=== PATIENT | male | born 1960 | race Caucasian/White ===

== ENCOUNTER 2018-11-19 14:44 | Inpatient (IN) | payer SELFPAY ==
[2018-11-19] MEDS ORDERED: NORMAL SALINE 1000 ML 1,000 ML IV ONE (15:26)
--- NOTE | 2018-11-19 15:31 | ER Document Report ---
ED Medical Screen (RME) - General Chief Complaint: Leg Pain Stated Complaint: RIGHT TOE PAIN Time Seen by Provider: 11/19/18 15:24 Mode of Arrival: Wheelchair Information source: Patient Notes: 58-year-old male presented to ED for complaint of a discolored black dripping right great toe. He states is been discolored and scab for a while but it flared up worse last couple days. He states he has [place] airports [place] on and it started bleeding and passing. He states he is been trying to baby it for couple days till he got home but it kept getting worse. He states the toe is now extremely painful and black to the color. He states he still has sensation in his foot. He states he has a history of blood blood pressure cholesterol and he had diabetes but has been on a diet and is kept his sugar under control. He states he smokes a pack a day drinks 3-4 beer every other day and smokes pot. 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 Patient is alert oriented respirations regular and unlabored speaking in full sentences. The foot is wrapped up in gauze but it is dripping through the gauze. I have greeted and performed a rapid initial assessment of this patient. A comprehensive ED assessment and evaluation of the patient, analysis of test results and completion of medical decision making process will be conducted by an additional ED providers. - Related Data Allergies/Adverse Reactions: Penicillins Allergy (Verified 11/19/18 14:47) Physical Exam - Vital signs Vitals: Temp Pulse Resp BP Pulse Ox 98.3 F 85 14 154/73 H 98 11/19/18 14:57 11/19/18 14:57 11/19/18 14:57 11/19/18 14:57 11/19/18 14:57 Course - Vital Signs Vital signs: Temp Pulse Resp BP Pulse Ox 98.3 F 85 14 154/73 H 98 11/19/18 14:57 11/19/18 14:57 11/19/18 14:57 11/19/18 14:57 11/19/18 14:57
--- NOTE | 2018-11-19 16:05 | RADIOLOGY REPORT (SQ) ---
EXAM DESCRIPTION: FOOT RIGHT COMPLETE COMPLETED DATE/TIME: 11/19/2018 3:53 pm REASON FOR STUDY: nacrotic right great toe COMPARISON: None. NUMBER OF VIEWS: Three views. TECHNIQUE: AP, lateral and oblique radiographic images acquired of the right foot. LIMITATIONS: None. FINDINGS: MINERALIZATION: Decreased forefoot mineralization. BONES: Cortical irregularity and fragmentation at the distal 1st phalanx compatible with osteomyeliti s. No evidence of fracture dislocation. Additional degenerative changes with mild joint space loss and osteophytosis at scattered interphalangeal joints. Small plantar calcaneal enthesophyte. JOINTS: No dislocation. Mild midfoot degenerative change. SOFT TISSUES: Subcutaneous gas along the 1st digit. Laceration along the lateral forefoot. OTHER: No other significant finding. IMPRESSION: 1. Subcutaneous gas along the 1st digit with bony destruction of the 1st distal phalanx compatible with osteomyelitis. 2. Likely laceration along the lateral forefoot. TECHNICAL DOCUMENTATION: JOB ID: [id number] [employer]- All Rights Reserved Reading location - IP/workstation name: [email or web address]
[2018-11-19 16:35] LABS: ABSOLUTE BASOPHILS # (AUTO) 0.1 10^3/uL (0.0-0.2); ABSOLUTE EOSINOPHILS # (AUTO) 0.1 10^3/uL (0.0-0.6); ABSOLUTE LYMPHOCYTES (AUTO) 1.6 10^3/uL (0.5-4.7); ABSOLUTE NEUT (AUTO) 8.6 10^3/uL (1.7-8.2); BASOPHILS % (AUTO) 0.6 % (0-2); EOSINOPHILS % (AUTO) 0.6 % (0-6); HEMATOCRIT 47.3 % (37.9-51.0); HEMOGLOBIN 15.8 g/dL (13.5-17.0); LYMPHOCYTES % (AUTO) 13.9 % (13-45); MEAN CORPUSCULAR HEMOGLOBIN 29.7 pg (27.0-33.4); MEAN CORPUSCULAR HGB CONC 33.4 g/dL (32.0-36.0); MEAN CORPUSCULAR VOLUME 89 fl (80-97); MONOCYTES % (AUTO) 8.8 % (3-13); PLATELET COUNT 249 10^3/uL (150-450); RED BLOOD COUNT 5.32 10^6/uL (4.35-5.55); RED CELL DISTRIBUTION WIDTH 13.2 % (11.5-14.0); SEGMENTED NEUTROPHILS % (AUTO) 76.1 % (42-78); TOTAL CELLS COUNTED % (AUTO) 100 %; WHITE BLOOD COUNT 11.3 10^3/uL (4.0-10.5)
[2018-11-19] MEDS ORDERED: VANCOMYCIN HCL INJ 1000 MG VIAL IV ONE (16:49)
[2018-11-19 17:02] LABS: ALBUMIN 4.4 g/dL (3.5-5.0); ALKALINE PHOSPHATASE 146 U/L (38-126); ANION GAP 18 (5-19); ASPARTATE AMINO TRANSFERASE 19 U/L (17-59); BILIRUBIN,DIRECT 0.5 mg/dL (0.0-0.4); BLOOD UREA NITROGEN 14 mg/dL (7-20); CALCIUM 9.8 mg/dL (8.4-10.2); CARBON DIOXIDE 19 mmol/L (22-30); CHLORIDE 101 mmol/L (98-107); GLUCOSE 317 mg/dL (75-110); POTASSIUM 4.3 mmol/L (3.6-5.0)
--- NOTE | 2018-11-19 17:12 | ER Document Report ---
ED General - General Chief Complaint: Leg Pain Stated Complaint: RIGHT TOE PAIN Time Seen by Provider: 11/19/18 15:24 Mode of Arrival: Wheelchair - HPI Notes: 58-year-old male to the emergency department with complaints of right great toe infection that has been getting worse for the past week. He states that he was visiting a friend in [place] over the past week and they were walking around quite a bit. He states that when he took his foot out of his shoe it was acutely swollen and bleeding. He states that since then the toe is gotten more swollen and has been draining discharge. He also states that there is redness that is coming up the foot that has been getting progressively worse. He states that he has pain on the top of the foot but not into the toe. He states that he is a diet-controlled diabetic. He states that he has not had any fevers, chills, chest pain, shortness of breath, abdominal pain. He last ate on an airplane at 12:30 PM today. He has been drinking water up until arrival here into the emergency department. - Related Data Allergies/Adverse Reactions: Penicillins Allergy (Verified 11/19/18 14:47) Past Medical History - General Information source: Patient - Social History Smoking Status: Current Every Day Smoker Frequency of alcohol use: Occasional Drug Abuse: None Lives with: Family Family History: Reviewed & Not Pertinent Patient has suicidal ideation: No Patient has homicidal ideation: No - Past Medical History Cardiac Medical History: Reports: Hx Hypercholesterolemia, Hx Hypertension Endocrine Medical History: Reports: Hx Diabetes Mellitus Type 2 Past Surgical History: Reports: Hx Tonsillectomy Review of Systems - Review of Systems Constitutional: denies: Chills, Fever EENT: No symptoms reported Cardiovascular: denies: Chest pain, Palpitations, Dyspnea, Syncope, Dizziness, Lightheaded Respiratory: denies: Cough, Short of breath Gastrointestinal: denies: Abdominal pain, Diarrhea, Nausea, Vomiting Genitourinary: No symptoms reported Musculoskeletal: See HPI, Joint pain, Joint swelling Skin: See HPI, Change in color, Other Hematologic/Lymphatic: No symptoms reported Neurological/Psychological: No symptoms reported -: Yes All other systems reviewed and negative Physical Exam - Vital signs Vitals: Temp Pulse Resp BP Pulse Ox 98.3 F 85 14 154/73 H 98 11/19/18 14:57 11/19/18 14:57 11/19/18 14:57 11/19/18 14:57 11/19/18 14:57 Interpretation: Hypertensive - General General appearance: Appears well, Alert In distress: None - HEENT Head: Normocephalic, Atraumatic Eyes: Normal Pupils: PERRL - Respiratory Respiratory status: No respiratory distress Chest status: Nontender Breath sounds: Normal Chest palpation: Normal - Cardiovascular Rhythm: Regular Heart sounds: Normal auscultation Murmur: No - Abdominal Inspection: Normal Distension: No distension Bowel sounds: Normal Tenderness: Nontender Organomegaly: No organomegaly - Extremities General upper extremity: Normal inspection, Normal color, Normal strength. No: Edema Foot: Tender, Edema, Other - To the right great toe, the nailbed is completely macerated and edematous. It has ivan copious malodorous purulent drainage. There is erythema that extends from the right great toe up to the mid foot dorsally. This area is hot and mildly tender to palpation. There appears to be involvement of this infection to the second digit of the right foot as well. DP pulse is intact and equal. - Neurological Neuro grossly intact: Yes Cognition: Normal Orientation: AAOx4 Rodger Coma Scale Eye Opening: Spontaneous [place] Coma Scale Verbal: Oriented [place] Coma Scale Motor: Obeys Commands [place] Coma Scale Total: 15 Speech: Normal Motor strength normal: LUE, RUE, LLE, RLE Sensory: Normal - Psychological Associated symptoms: Normal affect, Normal mood - Skin Skin Temperature: Hot Skin Color: Erythema - see MS for further discussion of the infection to the right great toe. Course - Re-evaluation Re-evalutation: 11/19/18 17:20 page out to Surgicalist. Will await return call. Noted Xr with gas gangrene and osteomyelitis on XR of distal phalanx of the righ t great toe. Foot X-Ray 11/19/18 15:25 IMPRESSION: 1. Subcutaneous gas along the 1st digit with bony destruction of the 1st distal phalanx compatible with osteomyelitis. 2. Likely laceration along the lateral forefoot. 11/19/18 17:[address] Velazquez, surgical is national business director. Since patient technically qualifies for diabetic foot and felt section he would like for him to go to the hospital service. He states that the hospitalist service should consult him. Spoke with ERLINDA Todd, hospitalist ERLINDA. He agrees with the plan for admission. He is aware of vancomycin given for the patient. He is aware of the x-ray with gas gangrene and osteomyelitis illustrated. He is aware of white count. He is aware that patient's vital signs are stable. We will place patient into a medical bed for admission. He is aware the patient's been made n.p.o. Discussed with patient consultations and he agrees with the plan for admission. ERLINDA Don Day down to patient's bedside just as our conversation was concluding. 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 Will be admitted to the hospitalist service with surgery consulting. Antibiotics have been started. Discussed patient with Dr. Christianson, ER attending. She agrees with the plan for admission. - Vital Signs Vital signs: Temp Pulse Resp BP Pulse Ox 98.3 F 85 14 154/73 H 98 11/19/18 14:57 11/19/18 14:57 11/19/18 14:57 11/19/18 14:57 11/19/18 14:57 - Laboratory Result Diagrams: 11/19/18 16:10 11/19/18 16:10 Laboratory results interpreted by me: 11/19/18 11/19/18 16:10 16:10 WBC 11.3 H Absolute Neuts (auto) 8.6 H ESR 80 H Carbon Dioxide 19 L Creatinine 0.44 L Glucose 317 H Direct Bilirubin 0.5 H Alkaline Phosphatase 146 H C-Reactive Protein 217.9 H - Diagnostic Test Radiology reviewed: Image reviewed, Reports reviewed Discharge - Discharge Clinical Impression: Gas gangrene, Osteomyelitis of great toe, Cellulitis of foot, Hyperglycemia Condition: Stable Disposition: ADMITTED INPATIENT Admitting Provider: Jassi (Hospitalist) Unit Admitted: Medical Floor
[2018-11-19 17:14] LABS: C-REACTIVE PROTEIN 217.9 mg/L (<10.0); ERYTHROCYTE SEDIMENTATION RATE 80 mm/hr (0-20)
[2018-11-19] MEDS ORDERED: DEXTROSE 40% GEL 15 GM TUBE PO PRN ×4 (17:57→18:10)
[2018-11-19] MEDS ORDERED: ZOLPIDEM TARTRATE 5 MG TABLET PO PRN (17:57)
[2018-11-19] MEDS ORDERED: OXYCODONE-ACETAMINOPHEN 5-325 MG TABLET PO PRN (17:57)
[2018-11-19] MEDS ORDERED: ONDANSETRON HCL INJ/PF 4 MG/2 ML SDV IV PRN (17:57)
[2018-11-19] MEDS ORDERED: ONDANSETRON 4 MG TAB.RAPDIS PO PRN (17:57)
[2018-11-19] MEDS ORDERED: ACETAMINOPHEN 325 MG TABLET PO PRN (17:57)
[2018-11-19] MEDS ORDERED: DEXTROSE 50%-WATER 25 GM/50 ML DISP.SYRIN IV PRN ×4 (17:57→18:10)
[2018-11-19] MEDS ORDERED: GLUCAGON,HUMAN RECOMB 1 MG INJ SUBCUT PRN (17:57)
[2018-11-19] MEDS ORDERED: GLUCAGON,HUMAN RECOMB 1 MG INJ IM PRN (18:10)
--- NOTE | 2018-11-19 18:12 | Progress Note Acknowledgement ---
Progress Note Acknowledgement Progess Note Acknowledgement: I, the undersigned member of the medical staff with appropriate privileges and with supervisory authority over [ PAC], a dependent practice allied health professional, acknowledge that I have reviewed the progress notes entered on this patient, and in my professional judgment believe that the assessment made and/or any care evidenced was appropriate
[2018-11-19] MEDS ORDERED: HYDRALAZINE HCL INJ/PF 20 MG/1 ML SDV IV PRN (18:22)
--- NOTE | 2018-11-19 18:22 | PDOC H&P ---
History of Present Illness Admission Date/PCP: 11/19/18 17:40 Patient is admitted today 11/19/2018 for osteomyelitis of the right great toe History of Present Illness: JOHANA RUIZ JR is a 58 year old male who states that according to his history 6 days ago while visiting [facility] he noticed that his right great toe was "black and bleeding. According to the patient that the first time he noticed it was 6 days ago. Patient also states that it had a strong smell foul odor. Patient states that he is always had a "callus" on his great toe that he would either shave off her trim off but never had any sores, ulcers, lesions of his feet that would bleed or were open. Patient's right great toe is black, bleeding, the skin is necrotic. Patient has redness to the foot mcc up his right leg. No odor at this time. Patient states that the wound is not very painful he does feel it when he walks If history is that 20 years ago he was told he was diabetic he was put on m edications but he stopped the medicines 9 or 10 years ago because of finances. He is also been told in the past that he had high cholesterol but he stopped those medicines as well. He is allergic to penicillin he breaks out in a rash. 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 Patient's son and his are in the room during the exam and the history Past Medical History Cardiac Medical History: Reports: Hyperlipidema, Hypertension Endocrine Medical History: Reports: Diabetes Mellitus Type 2 Psychiatric Medical History: Reports: None, Other - Patient states he only drinks a beer or 2 every few days Past Surgical History Past Surgical History: Reports: Tonsillectomy Social History Lives with: Family Smoking Status: Current Every Day Smoker - Advance Directive Resuscitation Status: Full Code Family History Family History: Reviewed & Not Pertinent Parental Family History Reviewed: No Children Family History Reviewed: No Sibling(s) Family History Reviewed.: No Medication/Allergy Allergies/Adverse Reactions: Penicillins Allergy (Verified 11/19/18 14:47) Review of Systems Constitutional: ABSENT: chills, fever(s), headache(s), weight gain, weight loss Cardiovascular: ABSENT: chest pain, dyspnea on exertion, edema, orthropnea, palpitations Respiratory: ABSENT: cough, hemoptysis Gastrointestinal: ABSENT: abdominal pain, constipation, diarrhea, hematemesis, hematochezia, nausea, vomiting Integumentary: PRESENT: erythema, lesions, wounds, other - Right great toe with redness extending up to the mid tibia-fibula Neurological: ABSENT: abnormal gait, abnormal speech, confusion, dizziness, focal weakness, syncope Psychiatric: ABSENT: anxiety, depression, homidical ideation, suicidal ideation Physical Exam Vital Signs: Temp Pulse Resp BP Pulse Ox 98.3 F 85 14 154/73 H 98 11/19/18 14:57 11/19/18 14:57 11/19/18 14:57 11/19/18 14:57 11/19/18 14:57 Intake & Output 11/18/18 11/19/18 11/20/18 06:59 06:59 06:59 Weight 81 kg General appearance: PRESENT: no acute distress, other - Appears to be in no distress Head exam: PRESENT: atraumatic, normocephalic Respiratory exam: PRESENT: clear to auscultation cherie. ABSENT: rales, rhonchi, wheezes Cardiovascular exam: PRESENT: RRR. ABSENT: diastolic murmur, rubs, systolic murmur Neurological exam: PRESENT: alert, awake, oriented to person, oriented to place, oriented to time, oriented to situation, CN II-XII grossly intact. ABSENT: motor sensory deficit Psychiatric exam: PRESENT: appropriate affect, normal mood, other - Very pleasant, somewhat slow to questions. ABSENT: homicidal ideation, suicidal ideation Skin exam: PRESENT: erythema, warm, other - Necrotic tissue to the right great toe extending into the right foot, with redness and warmth to the dorsum of the right foot up to the right felipe Results Laboratory Results: 11/19/18 16:10 11/19/18 16:10 11/19/18 11/19/18 11/19/18 16:10 16:10 16:56 WBC 11.3 H RBC 5.32 Hgb 15.8 Hct 47.3 MCV 89 MCH 29.7 MCHC 33.4 RDW 13.2 Plt Count 249 Seg Neutrophils % 76.1 Sodium 137.6 Potassium 4.3 Chloride 101 Carbon Dioxide 19 L Anion Gap 18 BUN 14 Creatinine 0.44 L Est GFR ( Amer) > 60 Glucose 317 H Lactic Acid 1.4 Calcium 9.8 Total Bilirubin 1.0 AST 19 Alkaline Phosphatase 146 H C-Reactive Protein 217.9 H Total Protein 8.0 Albumin 4.4 Impressions: Foot X-Ray 11/19/18 15:25 IMPRESSION: 1. Subcutaneous gas along the 1st digit with bony destruction of the 1st distal phalanx compatible with osteomyelitis. 2. Likely laceration along the lateral forefoot. Assessment and Plan - Diagnosis (1) Hyperlipidemia Is this a current diagnosis for this admission?: Yes Plan: We will check a fasting lipid panel in the morning. History of medications in the past (2) Hypertension Is this a current diagnosis for this admission?: Yes Plan: Blood pressures elevated in the ER, patient states that he may have had hypertension in the past (3) Cellulitis of foot Is this a current diagnosis for this admission?: Yes Plan: Will be started on vancomycin IV in the ED and will be seen by general surgery further recommendations as well (4) Gas gangrene Is this a current diagnosis for this admission?: Yes Plan: Gas gangrene as evidenced by x-ray of the foot of the distal phalanx (6) Osteomyelitis of great toe Is this a current diagnosis for this admission?: Yes Plan: Osteomyelitis as diagnosed by x-ray, patient to be put on antibiotics and seen by general surgery - Time Time Spent with patient: 35 or more minutes
[2018-11-19 18:29] LABS: INTERNATIONAL RATION (INR) 1.11; PROTHROMBIN TIME 14.3 SEC (11.4-15.4)
--- NOTE | 2018-11-19 18:47 | RADIOLOGY REPORT (SQ) ---
EXAM DESCRIPTION: CHEST 2 VIEWS COMPLETED DATE/TIME: 11/19/2018 6:29 pm REASON FOR STUDY: Preop COMPARISON: None. EXAM PARAMETERS: NUMBER OF VIEWS: two views TECHNIQUE: Digital Frontal and Lateral radiographic views of the chest acquired. RADIATION DOSE: NA LIMITATIONS: none FINDINGS: LUNGS AND PLEURA: No opacities, masses or pneumothorax. No pleural effusion. MEDIASTINUM AND HILAR STRUCTURES: No masses or contour abnormalities. HEART AND VASCULAR STRUCTURES: Heart normal size. No evidence for failure. BONES: No acute findings. Exaggerated thoracic kyphosis. HARDWARE: None in the chest. OTHER: No other significant finding. IMPRESSION: No evidence of acute cardiopulmonary process. TECHNICAL DOCUMENTATION: JOB ID: [id number] [employer]- All Rights Reserved Reading location - IP/workstation name: [email or web address]
--- NOTE | 2018-11-19 20:54 | PDOC CONSULTATION ---
Consultation Consult Date: 11/19/18 Provider Consulted: SURGICAL SURGICALIST Consult reason:: wet gangrene right foot History of Present Illness Admission Date/PCP: 11/19/18 17:40 History of Present Illness: JOHANA RUIZ JR is a 58 year old male with uncontrolled diabetes. The patient reports that approximately 1 week ago he was out of town visiting friends. He was walking around town and noticed bleeding from his toe. The patient reports that he did not seek care at that time and treated it with creams and dressings. The toe began to worsen, and the patient returned home. Upon returning home he showed the foot to his family, who immediately brought him to the hospital. The patient reports that he has diabetes, but does not check his sugars or take any medications. The patient does have some amount of neuropathy. The patient began to notice a foul odor and black discoloration of his right great toe. He also has erythema that has extended proximally up the foot and onto the lower leg. The patient reports foul-smelling drainage that is worsening. He denies chest pain, shortness of breath, nausea, vomiting, headache, dizziness, orthostasis, abdominal pain, fatigue. Past Medical History Cardiac Medical History: Reports: Hyperlipidema, Hypertension Endocrine Medical History: Reports: Diabetes Mellitus Type 2 Psychiatric Medical History: Reports: None, Other - Patient states he only drinks a beer or 2 every few days Past Surgical History Past Surgical History: Reports: Tonsillectomy Social History Lives with: Family Smoking Status: Current Every Day Smoker Frequency of Alcohol Use: Heavy Hx Recreational Drug Use: No - Advance Directive Resuscitation Status: Full Code Family History Family History: Reviewed & Not Pertinent Parental Family History Reviewed: Yes Children Family History Reviewed: Yes Sibling(s) Family History Reviewed.: Yes Medication/Allergy Home Medications: No Home Medications 11/19/18 Allergies/Adverse Reactions: Penicillins Allergy (Verified 11/19/18 14:47) Review of Systems Constitutional: ABSENT: anorexia, chills, fatigue Eyes: ABSENT: visual disturbances Ears: ABSENT: hearing changes Nose, Mouth, and Throat: ABSENT: sore throat Cardiovascular: ABSENT: chest pain Respiratory: ABSENT: cough, dyspnea Gastrointestinal: ABSENT: abdominal pain Genitourinary: ABSENT: difficulty urinating Musculoskeletal: ABSENT: back pain Integumentary: PRESENT: lesions, rash, wounds, other - Foul-smelling and purulent drainage from the right foot. Ascending erythema on the right foot and leg. Neurological: ABSENT: confusion, convulsions, dizziness Psychiatric: ABSENT: anxiety Endocrine: ABSENT: cold intolerance, heat intolerance Hematologic/Lymphatic: ABSENT: easy bleeding, easy bruising Physical Exam Vital Signs: Temp Pulse Resp BP Pulse Ox 98.3 F 85 14 154/73 H 98 11/19/18 14:57 11/19/18 14:57 11/19/18 14:57 11/19/18 14:57 11/19/18 14:57 Intake & Output 11/18/18 11/19/18 11/20/18 06:59 06:59 06:59 Intake Total 1000 Balance 1000 Weight 81 kg General appearance: PRESENT: no acute distress Head exam: PRESENT: atraumatic, normocephalic Eye exam: PRESENT: EOMI, PERRLA. ABSENT: scleral icterus Mouth exam: PRESENT: moist, neck supple Neck exam: ABSENT: meningismus, tenderness, thyromegaly, tracheal deviation Cardiovascular exam: PRESENT: RRR Pulses: PRESENT: normal radial pulses Vascular exam: PRESENT: other - Palpable posterior tibial pulse bilaterally. GI/Abdominal exam: PRESENT: soft. ABSENT: firm, guarding, rigid, tenderness Rectal exam: PRESENT: deferred Extremities exam: PRESENT: +2 edema - Right foot, other - Right foot with wet gangrene and necrosis of the first and second toes. There is foul-smelling drainage. There is severe erythema and boggy edema extending over the entire foot, up to the calf. Neurological exam: PRESENT: alert, awake, oriented to person, oriented to place, oriented to time, oriented to situation, CN II-XII grossly intact. ABSENT: motor sensory deficit Psychiatric exam: PRESENT: anxious. ABSENT: agitated, depressed Focused psych exam: ABSENT: delusional Skin exam: PRESENT: erythema - Right foot, extending up to the lower leg.. ABSENT: cyanosis, jaundice Results Laboratory Results: 11/19/18 16:10 11/19/18 16:10 11/19/18 11/19/18 11/19/18 16:10 16:10 16:56 WBC 11.3 H RBC 5.32 Hgb 15.8 Hct 47.3 MCV 89 MCH 29.7 MCHC 33.4 RDW 13.2 Plt Count 249 Seg Neutrophils % 76.1 Sodium 137.6 Potassium 4.3 Chloride 101 Carbon Dioxide 19 L Anion Gap 18 BUN 14 Creatinine 0.44 L Est GFR ( Amer) > 60 Glucose 317 H Lactic Acid 1.4 Calcium 9.8 Total Bilirubin 1.0 AST 19 Alkaline Phosphatase 146 H C-Reactive Protein 217.9 H Total Protein 8.0 Albumin 4.4 Impressions: Foot X-Ray 11/19/18 15:25 IMPRESSION: 1. Subcutaneous gas along the 1st digit with bony destruction of the 1st distal phalanx compatible with osteomyelitis. 2. Likely laceration along the lateral forefoot. Chest X-Ray 11/19/18 18:05 IMPRESSION: No evidence of acute cardiopulmonary process. Assessment & Plan - Diagnosis (1) Gangrene of right foot Is this a current diagnosis for this admission?: Yes (2) Gas gangrene Is this a current diagnosis for this admission?: Yes - Plan Summary Plan Summary: This is a 58-year-old male with uncontrolled diabetes and a 1 week history of progressive necrosis of the right foot. Patient has wet gangrene involving the first and second toe, extending into the midfoot, up to the ankle. I have discussed options with the patient. The patient has a large amount of necrotic tissue in the distal foot. While a transmetatarsal amputation may technically be feasible, it will be fraught with infectious complications, and difficulty with coverage of the wound (due to the large amount of necrosis of the forefoot). In light of these issues I have discussed, and recommended that the patient strongly consider, below-knee amputation on the right side. This will definitively remove the source of infection (which is severe and significant). It will also allow him to begin the long road to recovery and prosthesis. The patient wishes to discuss these options with his family. I will plan for surgical intervention tomorrow. The patient will decide between damage control/transmetatarsal amputation versus definitive below-knee amputation. Risks/benefits discussed and all questions answered.
[2018-11-19 21:38] LABS: APPEARANCE,URINE CLEAR; BILIRUBIN,URINE NEGATIVE (NEGATIVE); COLOR,URINE YELLOW; GLUCOSE, URINE >=500 mg/dL (NEGATIVE); KETONES,URINE 80 mg/dL (NEGATIVE); LEUKOCYTE ESTERASE,URINE NEGATIVE (NEGATIVE); NITRITE,URINE NEGATIVE (NEGATIVE); PROTEIN,URINE 30 mg/dL (NEGATIVE); URINE SPECIFIC GRAVITY 1.035; UROBILINOGEN,URINE NEGATIVE mg/dL (<2.0)
[2018-11-19] MEDS: FAMOTIDINE 20 MG TABLET PO SCH (21:56)
[2018-11-19] MEDS: HEPARIN SOD (PORCINE) 5,000 UNIT/ML 1 ML VIAL SUBCUT SCH (21:57)
[2018-11-19] MEDS: INSULIN LISPRO 100 UNIT/ML 3 ML VIAL SUBCUT SCH (23:53)
[2018-11-20] MEDS: HEPARIN SOD (PORCINE) 5,000 UNIT/ML 1 ML VIAL SUBCUT SCH (05:29)
[2018-11-20] MEDS: INSULIN LISPRO 100 UNIT/ML 3 ML VIAL SUBCUT SCH ×4 (06:21→21:39)
[2018-11-20 06:29] LABS: ABSOLUTE BASOPHILS # (AUTO) 0.1 10^3/uL (0.0-0.2); ABSOLUTE EOSINOPHILS # (AUTO) 0.2 10^3/uL (0.0-0.6); ABSOLUTE LYMPHOCYTES (AUTO) 1.5 10^3/uL (0.5-4.7); ABSOLUTE MONOCYTES (AUTO) 0.9 10^3/uL (0.1-1.4); ABSOLUTE NEUT (AUTO) 5.7 10^3/uL (1.7-8.2); BASOPHILS % (AUTO) 1.3 % (0-2); EOSINOPHILS % (AUTO) 1.9 % (0-6); HEMATOCRIT 39.9 % (37.9-51.0); HEMOGLOBIN 13.5 g/dL (13.5-17.0); LYMPHOCYTES % (AUTO) 18.2 % (13-45); MEAN CORPUSCULAR HGB CONC 33.9 g/dL (32.0-36.0); MEAN CORPUSCULAR VOLUME 89 fl (80-97); MONOCYTES % (AUTO) 10.5 % (3-13); PLATELET COUNT 230 10^3/uL (150-450); RED CELL DISTRIBUTION WIDTH 12.8 % (11.5-14.0); SEGMENTED NEUTROPHILS % (AUTO) 68.1 % (42-78); TOTAL CELLS COUNTED % (AUTO) 100 %; WHITE BLOOD COUNT 8.3 10^3/uL (4.0-10.5)
[2018-11-20 06:40] LABS: ANION GAP 14 (5-19); BLOOD UREA NITROGEN 11 mg/dL (7-20); CALCIUM 8.5 mg/dL (8.4-10.2); CARBON DIOXIDE 20 mmol/L (22-30); CHLORIDE 105 mmol/L (98-107); CHOLESTEROL 150.54 mg/dL (0-200); GLUCOSE 272 mg/dL (75-110); POTASSIUM 4.1 mmol/L (3.6-5.0); TRIGLYCERIDES 125 mg/dL (<150)
[2018-11-20 06:51] LABS: DIRECT LDL 118 mg/dL (<100)
[2018-11-20] MEDS ORDERED: FENTANYL CITRATE INJ/PF 100 MCG/2 ML AMPUL ONE (08:37)
[2018-11-20] MEDS ORDERED: MIDAZOLAM 2 MG/2 ML INJ ONE ×2 (08:38→08:45)
[2018-11-20] MEDS ORDERED: PROPOFOL INJ 200 MG/20 ML VIAL IV ONE ×2 (08:38→08:46)
[2018-11-20] MEDS ORDERED: ONDANSETRON HCL INJ/PF 4 MG/2 ML SDV ONE (08:38)
[2018-11-20] MEDS ORDERED: MORPHINE SULFATE 10 MG/ML INJ ONE (08:38)
[2018-11-20] MEDS ORDERED: CEFAZOLIN INJ 1 GM VIAL ONE (08:52)
[2018-11-20] MEDS ORDERED: PROMETHAZINE HCL INJ 25 MG/1 ML VIAL IV PRN ×2 (09:22)
[2018-11-20] MEDS ORDERED: FENTANYL CITRATE INJ/PF 100 MCG/2 ML AMPUL IV PRN ×3 (09:22)
[2018-11-20] MEDS ORDERED: MEPERIDINE HCL/PF INJ 25 MG/1 ML DISP.SYRIN IV PRN (09:22)
[2018-11-20] MEDS ORDERED: MORPHINE SULFATE 10 MG/ML INJ IV PRN (09:22)
[2018-11-20] MEDS ORDERED: DIPHENHYDRAMINE HCL 50 MG/ML VIAL IV PRN (09:22)
[2018-11-20] MEDS ORDERED: CLINDAMYCIN 600 MG/D5W RTU 600 MG/50 ML RTUPB IV ONE (09:25)
--- NOTE | 2018-11-20 10:55 | Operative Report ---
Operative Report DATE OF SURGERY: 11/20/18 PREOPERATIVE DIAGNOSIS: Gangrene multiple toes right foot POSTOPERATIVE DIAGNOSIS: Same OPERATION: Right below-knee amputation SURGEON: NAGA MITCHELL ANESTHESIA: Epidural TISSUE REMOVED OR ALTERED: Right BKA specimen COMPLICATIONS: None ESTIMATED BLOOD LOSS: Less than 20 mL INTRAOPERATIVE FINDINGS: As preop diagnosis; tourniquet time 67 minutes PROCEDURE: The procedure was done in the operating room, the patient was placed in a supine position, spinal anesthesia was induced plus intravenous sedation. Proximally to the area of interest, Clancy cotton roll was circumferentially applied to the thigh followed by a disposable tourniquet, protected by a 1010 drape. The extremity of interest was prepped and draped in the usual fashion. The extremity was exanguinated with an Esmarch band. The tourniquet was inflated to about 150 mmHg above the systolic blood pressure. The proposed area of skin incision was outlined with a surgical marker so to have a long, floppy posterior myocutaneous flap able to close the surgical wound. An incision was made along the outlined lines of amputation; the incision was deepened through the subcutaneous tissue down to the bone: this was continued circumferentially following the outlined lines. The tibial and fibular bones were exposed proximally with a periosteal elevator and divided as proximally as possible with an oscillating electrical saw. The tibia was divided about 2 fingerbreadths below the tibial tuberosity. The fibula was divided at a similar length. The posterior leg neurovascular complex was identified, the tibial nerve was isolated, clamped, and divided. The proximal nerve stump was double ligated and folded on itself to prevent regrowth and neuroma formation. This was accomplished with a 2-0 silk suture. Likewise, the vessels were identified: both veins and arteries were individually suture ligated in between clamps using a 2-0 silk sutures on a needle. Particular attention was paid to the popliteal artery which was carefully ligated. The distal end of the myocutaneous flap was divided with Bovie. The specimen was removed from the surgical field and sent to pathology. Local smaller vessels were identified and cauterized or suture ligated. The bone stump edges were filed and the stumps were covered with bone wax. The surgical field was then irrigated with normal saline until clear. A 15 Georgian round Donnie drain drain was placed deep in the surgical field and was allowed to exit through a separate stab wound located laterally in the BKA stump. The drain was secured to the skin with a 2-0 nylon suture. Closure of the BKA was accomplished by anteriorly rotating the posterior myocutaneous flap. This was kept in positions with a few deep inverted figure-of-8 0-Vicryl sutures. The muscle fascia was approximated with interrupted [id number] 0-Vicryl sutures. The subcutaneous tissue were approximated with deep inverted 2-0 Vicryl sutures and the skin was closed with esme. Xeroform gauze was placed on the surgical wound followed by dry dressings and Kerlix roll. A prefabricated, fiberglass, padded splint was applied posteriorly to the distal thigh and to the BKA stump and folded anteriorly; this was kept in position by an Js bandage. The splint was allowed to cure while the BKA stump was maintained extended. The tourniquet was deflated; the tourniquet time was 67 minutes. The patient tolerated procedure well, was extubated, and was transferred to the recovery room in satisfactory conditions.
[2018-11-20] MEDS: FAMOTIDINE 20 MG TABLET PO SCH ×2 (11:44→21:38)
[2018-11-20] MEDS: DOCUSATE SODIUM 100 MG CAPSULE PO SCH (11:44)
[2018-11-20] MEDS: KETOROLAC TROMETHAMINE INJ/PF 30 MG/1 ML SDV IV PRN ×2 (11:45→18:46)
[2018-11-20] MEDS: ACETAMINOPHEN 1,000 MG/100 ML RTUPB IV SCH ×3 (11:47→23:02)
[2018-11-20] MEDS ORDERED: HYDROMORPHONE HCL INJ/PF 2 MG/ML AMPULE ONE (12:47)
[2018-11-20] MEDS ORDERED: CLINDAMYCIN PHOSPHATE 900 MG in DEXTROSE 5%-WATER 100 ML IV SCH (14:00)
[2018-11-20] MEDS ORDERED: CEFAZOLIN SODIUM 1 GM in DEXTROSE 5%-WATER 50 ML IV SCH (14:00)
--- NOTE | 2018-11-20 14:19 | EKG REPORT ---
SEVERITY:- BORDERLINE ECG - SINUS RHYTHM ATRIAL PREMATURE COMPLEX BORDERLINE T WAVE ABNORMALITIES : Confirmed by: Kelly Douglass 20-Nov-2018 14:18:42
[2018-11-20] MEDS: CEFAZOLIN 1 GM/D5W RTU 1 GM/50 ML RTUPB IV SCH ×2 (14:22→21:38)
[2018-11-20] MEDS: HYDROMORPHONE HCL INJ/PF 2 MG/ML AMPULE IV PRN ×2 (15:04→17:17)
[2018-11-20] MEDS: NORMAL SALINE 1000 ML 1,000 ML IV PRN (16:22)
[2018-11-20] MEDS ORDERED: NORMAL SALINE 1000 ML 1,000 ML IV PRN (17:22)
[2018-11-20] MEDS: CLINDAMYCIN 900 MG/D5W RTU 900 MG/50 ML RTUPB IV SCH (17:49)
[2018-11-20] MEDS ORDERED: NORMAL SALINE 1000 ML 1,000 ML IV ONE (18:00)
[2018-11-21] MEDS: CLINDAMYCIN 900 MG/D5W RTU 900 MG/50 ML RTUPB IV SCH ×3 (01:56→18:43)
[2018-11-21] MEDS: KETOROLAC TROMETHAMINE INJ/PF 30 MG/1 ML SDV IV PRN ×2 (05:45→12:03)
[2018-11-21] MEDS: ACETAMINOPHEN 1,000 MG/100 ML RTUPB IV SCH ×4 (05:45→23:00)
[2018-11-21] MEDS: CEFAZOLIN 1 GM/D5W RTU 1 GM/50 ML RTUPB IV SCH ×3 (05:45→21:46)
[2018-11-21 06:09] LABS: ABSOLUTE BASOPHILS # (AUTO) 0.1 10^3/uL (0.0-0.2); ABSOLUTE EOSINOPHILS # (AUTO) 0.1 10^3/uL (0.0-0.6); ABSOLUTE LYMPHOCYTES (AUTO) 1.1 10^3/uL (0.5-4.7); ABSOLUTE MONOCYTES (AUTO) 0.9 10^3/uL (0.1-1.4); ABSOLUTE NEUT (AUTO) 6.4 10^3/uL (1.7-8.2); BASOPHILS % (AUTO) 0.7 % (0-2); EOSINOPHILS % (AUTO) 0.8 % (0-6); HEMATOCRIT 39.3 % (37.9-51.0); HEMOGLOBIN 13.2 g/dL (13.5-17.0); LYMPHOCYTES % (AUTO) 13.4 % (13-45); MEAN CORPUSCULAR HEMOGLOBIN 29.8 pg (27.0-33.4); MEAN CORPUSCULAR HGB CONC 33.4 g/dL (32.0-36.0); MEAN CORPUSCULAR VOLUME 89 fl (80-97); MONOCYTES % (AUTO) 10.5 % (3-13); PLATELET COUNT 229 10^3/uL (150-450); RED BLOOD COUNT 4.42 10^6/uL (4.35-5.55); RED CELL DISTRIBUTION WIDTH 12.9 % (11.5-14.0); SEGMENTED NEUTROPHILS % (AUTO) 74.6 % (42-78); TOTAL CELLS COUNTED % (AUTO) 100 %; WHITE BLOOD COUNT 8.6 10^3/uL (4.0-10.5)
[2018-11-21 06:26] LABS: ANION GAP 12 (5-19); BLOOD UREA NITROGEN 12 mg/dL (7-20); CALCIUM 8.2 mg/dL (8.4-10.2); CARBON DIOXIDE 22 mmol/L (22-30); CHLORIDE 104 mmol/L (98-107); GLUCOSE 217 mg/dL (75-110); POTASSIUM 4.2 mmol/L (3.6-5.0)
[2018-11-21] MEDS: INSULIN LISPRO 100 UNIT/ML 3 ML VIAL SUBCUT SCH ×4 (07:58→21:46)
[2018-11-21] MEDS: NORMAL SALINE 1000 ML 1,000 ML IV PRN (08:39)
--- NOTE | 2018-11-21 09:32 | PDOC PROGRESS REPORT ---
Subjective Progress Note for:: 11/21/18 Subjective:: The patient reports minimal right BKA pain following movement Reason For Visit: OSTEOMYELITIS, DIABETES, HYPERTENSION Physical Exam Vital Signs: Temp Pulse Resp BP Pulse Ox 97.9 F 60 14 138/55 H 100 11/21/18 08:00 11/21/18 08:00 11/21/18 08:00 11/21/18 08:00 11/21/18 08:00 Pulse Oximeter Continuous Start: 11/20/18 17:03 Freq: RTQ4 Status: Active Protocol: Document 11/21/18 07:38 [facility] (Rec: 11/21/18 07:39 [facility] [id number]) Pulse Oximetry Assessment Oxygen Saturation (92-100) 100 Oxygen Delivery Method Room Air Fraction of Inspired Oxygen (FIO2) 21 Equipment Usage Equipment in Use Continuous SpO2 Machine # N1 Intake & Output 11/20/18 11/21/18 11/22/18 06:59 06:59 06:59 Intake Total 1490 4724 Output Total 1000 2020 10 Balance 490 2704 -10 Weight 78.1 kg 86.3 kg General appearance: PRESENT: no acute distress Extremities exam: PRESENT: other - Right lower extremity = BKA site covered with dressings clean dry and intact and splint, no odor, drain with small amount of serosanguineous fluid Left lower extremity = erythema of the great toe to get up with a large callus in the plantar surface at the level of the first metatarsophalangeal joint Results Laboratory Results: 11/21/18 05:47 11/21/18 05:47 11/21/18 11/21/18 05:47 05:47 WBC 8.6 RBC 4.42 Hgb 13.2 L Hct 39.3 MCV 89 MCH 29.8 MCHC 33.4 RDW 12.9 Plt Count 229 Seg Neutrophils % 74.6 Sodium 137.8 Potassium 4.2 Chloride 104 Carbon Dioxide 22 Anion Gap 12 BUN 12 Creatinine 0.34 L Est GFR ( Amer) > 60 Glucose 217 H Calcium 8.2 L Impressions: Foot X-Ray 11/19/18 15:25 IMPRESSION: 1. Subcutaneous gas along the 1st digit with bony destruction of the 1st distal phalanx compatible with osteomyelitis. 2. Likely laceration along the lateral forefoot. Chest X-Ray 11/19/18 18:05 IMPRESSION: No evidence of acute cardiopulmonary process. Assessment & Plan - Diagnosis (1) Gangrene of right foot Is this a current diagnosis for this admission?: Yes - Plan Summary Plan Summary: Assessment: Postoperative day #2 following right BKA Vital signs stable, patient afebrile Blood work within normal limits Right BKA site shows dressings clean dry and intact with no odor BKA drain filled with serosanguineous, fluid about the 7 mL since surgery Patient comfortable The patient presents with a large callus in the left foot plantar surface at the level of the first metatarsal-phalangeal joint and erythema of the left great toe: Plan: Up in chair with assistance BKA stump to be unveiled tomorrow Continue current care Hospitalist management to the patient's diabetes appreciated MRI of the left foot to rule out osteomyelitis will be ordered today
--- NOTE | 2018-11-21 10:11 | PDOC PROGRESS REPORT ---
Subjective Progress Note for:: 11/21/18 Subjective:: Patient seen in morning rounds, awake and alert eating breakfast, admits some dull pain to amputation site. Denies chest pain, shortness of breath, nausea vomiting but admits constipation. Nursing reports suboptimal hyperglycemia Reason For Visit: OSTEOMYELITIS, DIABETES, HYPERTENSION Physical Exam Vital Signs: Temp Pulse Resp BP Pulse Ox 97.9 F 60 14 138/55 H 100 11/21/18 08:00 11/21/18 08:00 11/21/18 08:00 11/21/18 08:00 11/21/18 08:00 Pulse Oximeter Continuous Start: 11/20/18 17:03 Freq: RTQ4 Status: Active Protocol: Document 11/21/18 07:38 [facility] (Rec: 11/21/18 07:39 [facility] [id number]) Pulse Oximetry Assessment Oxygen Saturation (92-100) 100 Oxygen Delivery Method Room Air Fraction of Inspired Oxygen (FIO2) 21 Equipment Usage Equipment in Use Continuous SpO2 Machine # N1 Intake & Output 11/19/18 11/20/18 11/21/18 11:59 11:59 11:59 Intake Total 1989 4223 Output Total 1019 2009 Balance 970 2214 Weight 78.1 kg 86.3 kg General appearance: PRESENT: no acute distress, well-developed, well-nourished Head exam: PRESENT: atraumatic, normocephalic Eye exam: PRESENT: conjunctiva pink, EOMI, PERRLA. ABSENT: scleral icterus Ear exam: PRESENT: normal external ear exam Mouth exam: PRESENT: moist, tongue midline Neck exam: ABSENT: carotid bruit, JVD, lymphadenopathy, thyromegaly Respiratory exam: PRESENT: crackles. ABSENT: accessory muscle use, rales, rhonchi, wheezes Cardiovascular exam: PRESENT: RRR. ABSENT: diastolic murmur, rubs, systolic murmur Pulses: PRESENT: normal dorsalis pedis pul Vascular exam: PRESENT: normal capillary refill GI/Abdominal exam: PRESENT: normal bowel sounds, soft. ABSENT: distended, guarding, mass, organolmegaly, rebound, tenderness Rectal exam: PRESENT: deferred Extremities exam: PRESENT: full ROM. ABSENT: calf tenderness, clubbing, pedal edema Neurological exam: PRESENT: alert, awake, oriented to person, oriented to place, oriented to time, oriented to situation, CN II-XII grossly intact. ABSENT: motor sensory deficit Psychiatric exam: PRESENT: appropriate affect, normal mood. ABSENT: homicidal ideation, suicidal ideation Skin exam: PRESENT: dry, intact, warm. ABSENT: cyanosis, rash Results Laboratory Results: 11/21/18 05:47 11/21/18 05:47 11/21/18 11/21/18 05:47 05:47 WBC 8.6 RBC 4.42 Hgb 13.2 L Hct 39.3 MCV 89 MCH 29.8 MCHC 33.4 RDW 12.9 Plt Count 229 Seg Neutrophils % 74.6 Sodium 137.8 Potassium 4.2 Chloride 104 Carbon Dioxide 22 Anion Gap 12 BUN 12 Creatinine 0.34 L Est GFR ( Amer) > 60 Glucose 217 H Calcium 8.2 L Impressions: Foot X-Ray 11/19/18 15:25 IMPRESSION: 1. Subcutaneous gas along the 1st digit with bony destruction of the 1st distal phalanx compatible with osteomyelitis. 2. Likely laceration along the lateral forefoot. Chest X-Ray 11/19/18 18:05 IMPRESSION: No evidence of acute cardiopulmonary process. Assessment and Plan - Diagnosis (1) Diabetes Is this a current diagnosis for this admission?: Yes Plan: Lantus 10 nightly plus Humalog sliding scale QIC (2) Atelectasis Is this a current diagnosis for this admission?: Yes Plan: Incentive spirometry and mobilization per surgery (3) Constipation Is this a current diagnosis for this admission?: Yes Plan: Colace, MiraLAX and lactulose as needed - Time Time Spent with patient: 25-34 minutes - Inpatient Certification Medical Necessity: Need Close Monitoring Due to Risk of Patient Decompensation
[2018-11-21] MEDS: FAMOTIDINE 20 MG TABLET PO SCH ×2 (10:29→21:46)
[2018-11-21] MEDS: METFORMIN HCL 500 MG TABLET PO SCH ×2 (10:29→16:41)
[2018-11-21] MEDS: DOCUSATE SODIUM 100 MG CAPSULE PO SCH (10:29)
[2018-11-21] MEDS: ENOXAPARIN SODIUM INJ 40 MG/0.4 ML DISP.SYRIN SUBCUT SCH (10:29)
--- NOTE | 2018-11-21 13:07 | RADIOLOGY REPORT (SQ) ---
EXAM DESCRIPTION: MRI LT LOWER EXTREMITY WITHOUT COMPLETED DATE/TIME: 11/21/2018 11:56 am REASON FOR STUDY: r/o osteomyelitis L foot and or L great toe COMPARISON: Radiographs 11/19/2018. TECHNIQUE: Multiplanar imaging of the left forefoot to include fat and fluid sensitive sequences. LIMITATIONS: None. FINDINGS: BONE MARROW: Focal erosion with loss of the tuft of the distal phalanx great toe. Interme diate T1/hyperintense T2 edema. This correlates with the radiographic findings. No other evidence o f bone loss or suspicious marrow edema. SOFT TISSUES: Mild edema in the intrinsic foot muscles, likely diabetic neuropathy related. No drain able collections or mass. Tissue loss is suggested along the plantar lateral aspect of the distal 5t h metatarsal. Mild soft tissue irregularity with skin thickening along the plantar aspect of the for efoot underlying the 1st and 2nd MP articulations also noted, again without drainable fluid suggested . OTHER: No other significant finding. IMPRESSION: 1. Osteomyelitis is restricted to the tip of the great toe. 2. A soft tissue wound along the 5th metatarsal distally. No associated osteomyelitis here. 3. No drainable fluid collections. Other findings as above. TECHNICAL DOCUMENTATION: JOB ID: [id number] [employer]- All Rights Reserved Reading location - IP[facility]workstation name: [email or web address]
[2018-11-21] MEDS: POLYETHYLENE GLYCOL 3350 POWDER 17 GM/1 PACKET PO SCH (13:33)
[2018-11-21] MEDS: INSULIN GLARGINE,HUM.REC.ANLOG 1,000 UNIT/10 ML VIAL SUBCUT SCH (21:47)
[2018-11-21 23:26] LABS: APPEARANCE,URINE CLEAR; BILIRUBIN,URINE NEGATIVE (NEGATIVE); COLOR,URINE YELLOW; GLUCOSE, URINE >=500 mg/dL (NEGATIVE); KETONES,URINE 80 mg/dL (NEGATIVE); LEUKOCYTE ESTERASE,URINE NEGATIVE (NEGATIVE); NITRITE,URINE NEGATIVE (NEGATIVE); PROTEIN,URINE NEGATIVE (NEGATIVE); URINE SPECIFIC GRAVITY 1.036
[2018-11-22] MEDS: CLINDAMYCIN 900 MG/D5W RTU 900 MG/50 ML RTUPB IV SCH ×3 (02:43→17:15)
[2018-11-22] MEDS: KETOROLAC TROMETHAMINE INJ/PF 30 MG/1 ML SDV IV PRN (04:20)
[2018-11-22 04:35] LABS: ABSOLUTE BASOPHILS # (AUTO) 0.1 10^3/uL (0.0-0.2); ABSOLUTE EOSINOPHILS # (AUTO) 0.1 10^3/uL (0.0-0.6); ABSOLUTE LYMPHOCYTES (AUTO) 1.6 10^3/uL (0.5-4.7); ABSOLUTE MONOCYTES (AUTO) 0.9 10^3/uL (0.1-1.4); ABSOLUTE NEUT (AUTO) 6.7 10^3/uL (1.7-8.2); BASOPHILS % (AUTO) 0.9 % (0-2); EOSINOPHILS % (AUTO) 1.5 % (0-6); HEMATOCRIT 40.7 % (37.9-51.0); HEMOGLOBIN 13.8 g/dL (13.5-17.0); MEAN CORPUSCULAR HEMOGLOBIN 29.7 pg (27.0-33.4); MEAN CORPUSCULAR HGB CONC 33.8 g/dL (32.0-36.0); MEAN CORPUSCULAR VOLUME 88 fl (80-97); MONOCYTES % (AUTO) 9.7 % (3-13); PLATELET COUNT 276 10^3/uL (150-450); RED BLOOD COUNT 4.64 10^6/uL (4.35-5.55); RED CELL DISTRIBUTION WIDTH 12.7 % (11.5-14.0); SEGMENTED NEUTROPHILS % (AUTO) 70.9 % (42-78); TOTAL CELLS COUNTED % (AUTO) 100 %; WHITE BLOOD COUNT 9.4 10^3/uL (4.0-10.5)
[2018-11-22 04:53] LABS: ANION GAP 10 (5-19); BLOOD UREA NITROGEN 7 mg/dL (7-20); CALCIUM 8.1 mg/dL (8.4-10.2); CARBON DIOXIDE 26 mmol/L (22-30); CHLORIDE 101 mmol/L (98-107); GLUCOSE 192 mg/dL (75-110); POTASSIUM 3.6 mmol/L (3.6-5.0)
[2018-11-22] MEDS: ACETAMINOPHEN 1,000 MG/100 ML RTUPB IV SCH ×4 (05:43→23:16)
[2018-11-22] MEDS: CEFAZOLIN 1 GM/D5W RTU 1 GM/50 ML RTUPB IV SCH ×3 (05:43→21:58)
[2018-11-22] MEDS ORDERED: HYDROCODONE/ACETAMINOPHEN 10-325 MG TABLET PO PRN (07:23)
[2018-11-22] MEDS: METFORMIN HCL 500 MG TABLET PO SCH ×2 (07:57→17:15)
[2018-11-22] MEDS: INSULIN LISPRO 100 UNIT/ML 3 ML VIAL SUBCUT SCH ×4 (07:57→21:59)
[2018-11-22] MEDS: DOCUSATE SODIUM 100 MG CAPSULE PO SCH (09:10)
[2018-11-22] MEDS: POLYETHYLENE GLYCOL 3350 POWDER 17 GM/1 PACKET PO SCH (09:10)
[2018-11-22] MEDS: ENOXAPARIN SODIUM INJ 40 MG/0.4 ML DISP.SYRIN SUBCUT SCH (09:14)
[2018-11-22] MEDS: FAMOTIDINE 20 MG TABLET PO SCH ×2 (09:14→21:58)
[2018-11-22] MEDS: GABAPENTIN 300 MG CAPSULE PO SCH ×3 (09:14→17:15)
--- NOTE | 2018-11-22 12:21 | PDOC PROGRESS REPORT ---
Subjective Progress Note for:: 11/22/18 Subjective:: 11/22/2018 being seen for medical management concerning his diabetes, hypertension and other medical problems. Patient came into the ER with gangrene of the great toe and surgeries was consulted, with resulting BKA of the right leg Reason For Visit: OSTEOMYELITIS, DIABETES, HYPERTENSION Physical Exam Vital Signs: Temp Pulse Resp BP Pulse Ox 98.4 F 61 17 157/66 H 99 11/22/18 00:12 11/22/18 00:12 11/22/18 00:12 11/22/18 00:12 11/22/18 00:12 Pulse Oximeter Continuous Start: 11/20/18 17:03 Freq: RTQ4 Status: Complete Protocol: Document 11/21/18 11:40 [facility] (Rec: 11/21/18 11:40 [facility] [email or web address]) Pulse Oximetry Assessment Equipment Usage Equipment Standby Continuous SpO2 Machine # n-1 Intake & Output 11/21/18 11/22/18 11/23/18 06:59 06:59 06:59 Intake Total 4724 2865 Output Total 2019 1060 Balance 2704 1805 Weight 86.3 kg 85.2 kg General appearance: PRESENT: no acute distress, other - States he is feeling good and wants to go outside in the wheelchair Respiratory exam: PRESENT: clear to auscultation cherie. ABSENT: rales, rhonchi, wheezes Cardiovascular exam: PRESENT: RRR. ABSENT: diastolic murmur, rubs, systolic murmur Extremities exam: PRESENT: other - Patient's BKA of the right leg is been addressed by surgery today with wound care team change Psychiatric exam: PRESENT: appropriate affect, normal mood, other - She is in good spirits. ABSENT: homicidal ideation, suicidal ideation Results Laboratory Results: 11/22/18 04:19 11/22/18 04:19 11/21/18 11/22/18 11/22/18 22:35 04: 04:19 WBC 9.4 RBC 4.64 Hgb 13.8 Hct 40.7 MCV 88 MCH 29.7 MCHC 33.8 RDW 12.7 Plt Count 276 Seg Neutrophils % 70.9 Sodium 136.8 L Potassium 3.6 Chloride 101 Carbon Dioxide 26 Anion Gap 10 BUN 7 Creatinine 0.31 L Est GFR ( Amer) > 60 Glucose 192 H Calcium 8.1 L Urine Color YELLOW Urine Appearance CLEAR Urine pH 6.0 Ur Specific Irene 1.036 Urine Protein NEGATIVE Urine Glucose (UA) >=500 H Urine Ketones 80 H Urine Blood SMALL H Urine Nitrite NEGATIVE Ur Leukocyte Esterase NEGATIVE Urine WBC (Auto) 3 Urine RBC (Auto) 22 Impressions: Foot X-Ray 11/19/18 15:25 IMPRESSION: 1. Subcutaneous gas along the 1st digit with bony destruction of the 1st distal phalanx compatible with osteomyelitis. 2. Likely laceration along the lateral forefoot. Chest X-Ray 11/19/18 18:05 IMPRESSION: No evidence of acute cardiopulmonary process. Lower Extremity MRI 11/21/18 00:00 IMPRESSION: 1. Osteomyelitis is restricted to the tip of the great toe. 2. A soft tissue wound along the 5th metatarsal distally. No associated osteomyelitis here. 3. No drainable fluid collections. Other findings as above. Assessment and Plan - Diagnosis (1) Hyperlipidemia Is this a current diagnosis for this admission?: Yes Plan: We will check a fasting lipid panel in the morning. History of medications in the past. 11/22/2018 total triglycerides and total cholesterol were normal (2) Hypertension Is this a current diagnosis for this admission?: Yes Plan: Blood pressures elevated in the ER, patient states that he may have had hypertension in the past 11/22/2018 patient's blood pressures are running around 150/70, currently using Apresoline on a as needed basis. Add Norvasc tomorrow start off at 5 mg daily (3) Cellulitis of foot Is this a current diagnosis for this admission?: Yes Plan: Will be started on vancomycin IV in the ED and will be seen by general surgery further recommendations as well 11/22/2018 she has had a BKA currently on Ancef 1 g IV every 8 hours and clindamycin 900 mg IV every 8 hours (4) Gas gangrene Is this a current diagnosis for this admission?: Yes Plan: Gas gangrene as evidenced by x-ray of the foot of the distal phalanx. 11/22/2018 patient has had a below the knee amputation on the right leg, this was done on 11/20/2018 (5) Hyperglycemia Is this a current diagnosis for this admission?: Yes Plan: She was started on metformin 500 mg twice daily and has been on a sliding scale of insulin as well. When patient came in his serum glucose was 317 it is now down into the low 200s. When he came in his hemoglobin A1c was 10.7 We will increase patient's metformin to thousand milligrams twice daily (6) Osteomyelitis of great toe Is this a current diagnosis for this admission?: Yes Plan: Osteomyelitis as diagnosed by x-ray, patient to be put on antibiotics and seen by general surgery 11/22/2018 patient has had a BKA on 11/20/2018. Patient had a MRI of the left lower extremity which shows osteomyelitis restricted to the tip of the great toe. No osteomyelitis seen of the fifth metatarsal - Time Time Spent with patient: 25-34 minutes - She has to go outside today in a wheelchair I told him he should wait until tomorrow and discuss with the general surgeon. I did tell him that it would be okay to go in a wheelchair but stay i nside of the hospital
--- NOTE | 2018-11-22 14:13 | PDOC PROGRESS REPORT ---
Subjective Progress Note for:: 11/22/18 Reason For Visit: OSTEOMYELITIS, DIABETES, HYPERTENSION Physical Exam Vital Signs: Temp Pulse Resp BP Pulse Ox 98.1 F 59 L 16 145/71 H 100 11/22/18 11:54 11/22/18 11:54 11/22/18 11:54 11/22/18 11:54 11/22/18 11:54 Pulse Oximeter Continuous Start: 11/20/18 17:03 Freq: RTQ4 Status: Complete Protocol: Document 11/21/18 11:40 [facility] (Rec: 11/21/18 11:40 [facility] [email or web address]) Pulse Oximetry Assessment Equipment Usage Equipment Standby Continuous SpO2 Machine # n-1 Intake & Output 11/21/18 11/22/18 11/23/18 06:59 06:59 06:59 Intake Total 4724 2865 410 Output Total 2019 1060 300 Balance 2704 1805 110 Weight 86.3 kg 85.2 kg Results Laboratory Results: 11/22/18 04:19 11/22/18 04:19 11/21/18 11/22/18 11/22/18 22:35 04:19 04:19 WBC 9.4 RBC 4.64 Hgb 13.8 Hct 40.7 MCV 88 MCH 29.7 MCHC 33.8 RDW 12.7 Plt Count 276 Seg Neutrophils % 70.9 Sodium 136.8 L Potassium 3.6 Chloride 101 Carbon Dioxide 26 Anion Gap 10 BUN 7 Creatinine 0.31 L Est GFR ( Amer) > 60 Glucose 192 H Calcium 8.1 L Urine Color YELLOW Urine Appearance CLEAR Urine pH 6.0 Ur Specific [place] 1.036 Urine Protein NEGATIVE Urine Glucose (UA) >=500 H Urine Ketones 80 H Urine Blood SMALL H Urine Nitrite NEGATIVE Ur Leukocyte Esterase NEGATIVE Urine WBC (Auto) 3 Urine RBC (Auto) 22 Impressions: Foot X-Ray 11/19/18 15:25 IMPRESSION: 1. Subcutaneous gas along the 1st digit with bony destruction of the 1st distal phalanx compatible with osteomyelitis. 2. Likely laceration along the lateral forefoot. Chest X-Ray 11/19/18 18:05 IMPRESSION: No evidence of acute cardiopulmonary process. Lower Extremity MRI 11/21/18 00:00 IMPRESSION: 1. Osteomyelitis is restricted to the tip of the great toe. 2. A soft tissue wound along the 5th metatarsal distally. No associated osteomyelitis here. 3. No drainable fluid collections. Other findings as above. Assessment & Plan - Diagnosis (1) Gangrene of right foot Is this a current diagnosis for this admission?: Yes (2) Gas gangrene Is this a current diagnosis for this admission?: Yes - Plan Summary Plan Summary: This is a 58-year-old male status post below-knee amputation for wet gangrene of the right foot. Patient is doing well today. His pain is reasonably well controlled. I have started the patient on Neurontin and oral hydrocodone. The patient's DENAE drain is productive of mild amounts of serosanguineous fluid. The dressing was removed, and the incision was inspected today. The incision appears to be clean, dry, and intact. The stump was redressed with an Js wrap. Physical therapy consult for mobilization. hospitality services manager consult for DME and rehab. Neurontin and hydrocodone added for pain control. Aggressive blood glucose control. Will follow.
[2018-11-22] MEDS: KETOROLAC TROMETHAMINE INJ/PF 30 MG/1 ML SDV IV SCH ×2 (14:22→21:58)
[2018-11-22] MEDS: INSULIN GLARGINE,HUM.REC.ANLOG 1,000 UNIT/10 ML VIAL SUBCUT SCH (21:59)
[2018-11-23] MEDS: CLINDAMYCIN 900 MG/D5W RTU 900 MG/50 ML RTUPB IV SCH ×3 (02:20→17:44)
[2018-11-23] MEDS: ACETAMINOPHEN 1,000 MG/100 ML RTUPB IV SCH (06:11)
[2018-11-23] MEDS: KETOROLAC TROMETHAMINE INJ/PF 30 MG/1 ML SDV IV SCH ×3 (06:12→21:57)
[2018-11-23] MEDS: CEFAZOLIN 1 GM/D5W RTU 1 GM/50 ML RTUPB IV SCH ×3 (06:12→21:57)
[2018-11-23] MEDS: METFORMIN HCL 500 MG TABLET PO SCH ×2 (07:52→17:44)
[2018-11-23] MEDS: INSULIN LISPRO 100 UNIT/ML 3 ML VIAL SUBCUT SCH ×4 (07:53→21:58)
[2018-11-23] MEDS: FAMOTIDINE 20 MG TABLET PO SCH ×2 (10:57→21:57)
[2018-11-23] MEDS: DOCUSATE SODIUM 100 MG CAPSULE PO SCH (10:58)
[2018-11-23] MEDS: ENOXAPARIN SODIUM INJ 40 MG/0.4 ML DISP.SYRIN SUBCUT SCH (10:58)
[2018-11-23] MEDS: GABAPENTIN 300 MG CAPSULE PO SCH ×3 (10:58→17:43)
--- NOTE | 2018-11-23 12:07 | PDOC PROGRESS REPORT ---
Subjective Progress Note for:: 11/23/18 Subjective:: 11/22/2018 being seen for medical management concerning his diabetes, hypertension and other medical problems. Patient came into the ER with gangrene of the great toe and surgeries was consulted, with resulting BKA of the right leg 11/23/2018 patient is doing well from his amputation in secondary to osteomyelitis as result of diabetes uncontrolled. Surgery directing his care. Reason For Visit: OSTEOMYELITIS, DIABETES, HYPERTENSION Physical Exam Vital Signs: Temp Pulse Resp BP Pulse Ox 98.7 F 59 L 16 143/74 H 99 11/23/18 07:36 11/23/18 07:36 11/23/18 07:36 11/23/18 07:36 11/23/18 07:36 Pulse Oximeter Continuous Start: 11/20/18 17:03 Freq: RTQ4 Status: Complete Protocol: Document 11/21/18 11:40 [facility] (Rec: 11/21/18 11:40 [facility] [email or web address]) Pulse Oximetry Assessment Equipment Usage Equipment Standby Continuous SpO2 Machine # n-1 Intake & Output 11/22/18 11/23/18 11/24/18 06:59 06:59 06:59 Intake Total 2865 1390 150 Output Total 1060 905 Balance 1805 485 150 Weight 85.2 kg 88.4 kg General appearance: PRESENT: no acute distress, other - Patient in bed with a pillow underneath his right knee. Dressing is dry and clean with no sign of bleeding or discharge Respiratory exam: PRESENT: clear to auscultation cherie. ABSENT: rales, rhonchi, wheezes Cardiovascular exam: PRESENT: RRR. ABSENT: diastolic murmur, rubs, systolic murmur Neurological exam: PRESENT: alert, awake, oriented to person, oriented to place, oriented to time, oriented to situation, CN II-XII grossly intact. ABSENT: motor sensory deficit Psychiatric exam: PRESENT: appropriate affect, normal mood, other - Patient wanting to go home. ABSENT: homicidal ideation, suicidal ideation Results Laboratory Results: 11/22/18 04:19 11/22/18 04:19 Impressions: Foot X-Ray 11/19/18 15:25 IMPRESSION: 1. Subcutaneous gas along the 1st digit with bony destruction of the 1st distal phalanx compatible with osteomyelitis. 2. Likely laceration along the lateral forefoot. Chest X-Ray 11/19/18 18:05 IMPRESSION: No evidence of acute cardiopulmonary process. Lower Extremity MRI 11/21/18 00:00 IMPRESSION: 1. Osteomyelitis is restricted to the tip of the great toe. 2. A soft tissue wound along the 5th metatarsal distally. No associated osteomyelitis here. 3. No drainable fluid collections. Other findings as above. Assessment and Plan - Diagnosis (1) Hyperlipidemia Is this a current diagnosis for this admission?: Yes Plan: We will check a fasting lipid panel in the morning. History of medications in the past. 11/22/2018 total triglycerides and total cholesterol were normal 11/23/2018 no medication for lipids (2) Hypertension Is this a current diagnosis for this admission?: Yes Plan: Blood pressures elevated in the ER, patient states that he may have had hypertension in the past 11/22/2018 patient's blood pressures are running around 150/70, currently using Apresoline on a as needed basis. Add Norvasc tomorrow start off at 5 mg daily 11/23/2018 blood pressure running about the same adding Norvasc 5 mg daily (3) Cellulitis of foot Is this a current diagnosis for this admission?: Yes Plan: Will be started on vancomycin IV in the ED and will be seen by general surgery further recommendations as well 11/22/2018 he has had a BKA currently on Ancef 1 g IV every 8 hours and clindamycin 900 mg IV every 8 hours 9 8:19 AM antibiotics as above blood culture shows no growth in 72 hours. Still awaiting wound cultures (4) Gas gangrene Is this a current diagnosis for this admission?: Yes Plan: Gas gangrene as evidenced by x-ray of the foot of the distal phalanx. 11/22/2018 patient has had a below the knee amputation on the right leg, this was done on 11/20/2018 11/23/2018 this is postop day #3. Patient's pain is well controlled (5) Hyperglycemia Is this a current diagnosis for this admission?: Yes Plan: She was started on metformin 500 mg twice daily and has been on a sliding scale of insulin as well. When patient came in his serum glucose was 317 it is now down into the low 200s. When he came in his hemoglobin A1c was 10.7 We will increase patient's metformin to thousand milligrams twice daily 11/23/2018 working on lowering patient's blood sugars. Fingersticks are running in the high 100s. It is been many years since patient has been on any medicines for diabetes (6) Osteomyelitis of great toe Is this a current diagnosis for this admission?: Yes Plan: Osteomyelitis as diagnosed by x-ray, patient to be put on antibiotics and seen by general surgery 11/22/2018 patient has had a BKA on 11/20/2018. Patient had a MRI of the left lower extremity which shows osteomyelitis restricted to the tip of the great toe. No osteomyelitis seen of the fifth metatarsal 11/23/2018 see the note above. Patient currently on antibiotic postop day #3 - Time Time Spent with patient: 25-34 minutes
[2018-11-23] MEDS: POLYETHYLENE GLYCOL 3350 POWDER 17 GM/1 PACKET PO SCH (12:24)
[2018-11-23] MEDS: AMLODIPINE BESYLATE 5 MG TABLET PO SCH (12:59)
--- NOTE | 2018-11-23 14:42 | PDOC PROGRESS REPORT ---
Subjective Progress Note for:: 11/23/18 Subjective:: No complaints of Reason For Visit: OSTEOMYELITIS, DIABETES, HYPERTENSION Physical Exam Vital Signs: Temp Pulse Resp BP Pulse Ox 98.4 F 68 20 157/73 H 99 11/23/18 11:14 11/23/18 13:05 11/23/18 11:14 11/23/18 11:14 11/23/18 11:14 Pulse Oximeter Continuous Start: 11/20/18 17:03 Freq: RTQ4 Status: Complete Protocol: Document 11/21/18 11:40 LDA (Rec: 11/21/18 11:40 LDA [email or web address]) Pulse Oximetry Assessment Equipment Usage Equipment Standby Continuous SpO2 Machine # [id number] Intake & Output 11/22/18 11/23/18 11/24/18 06:59 06:59 06:59 Intake Total 2865 1390 510 Output Total 1060 905 435 Balance 1805 485 75 Weight 85.2 kg 88.4 kg Musculoskeletal exam: PRESENT: other - Right BKA stump = wound clean, intact, very slight serous drainage, no erythema no odor moderate swelling, drain in place with serosanguineous fluid Results Laboratory Results: 11/22/18 04:19 11/22/18 04:19 Impressions: Foot X-Ray 11/19/18 15:25 IMPRESSION: 1. Subcutaneous gas along the 1st digit with bony destruction of the 1st distal phalanx compatible with osteomyelitis. 2. Likely laceration along the lateral forefoot. Chest X-Ray 11/19/18 18:05 IMPRESSION: No evidence of acute cardiopulmonary process. Lower Extremity MRI 11/21/18 00:00 IMPRESSION: 1. Osteomyelitis is restricted to the tip of the great toe. 2. A soft tissue wound along the 5th metatarsal distally. No associated osteomyelitis here. 3. No drainable fluid collections. Other findings as above. Assessment & Plan - Diagnosis (1) Gangrene of right foot Is this a current diagnosis for this admission?: Yes - Plan Summary Plan Summary: Assessment: Postop day #3 following right BKA for gangrene right foot Stump examination reveals an edematous stump, wound intact slight serous drainage, Drain output is about to 40 mL for the past 24 hours The patient has been evaluated by physical therapy and is fossae with the use of the walker MRI of the left foot done on 619 shows a distal left great toe osteomyelitis Plan: Stump drain to be removed the next 24 to 48 hours once the output is less than 20 m/day Patient be discharged following removal of the Demario-Ricci drain by the surgical viewpoint Waiting for the hospitalist service okay for discharge as long as the patient blood sugar is under fair control with a diabetes diet and medications Patient undergo placement of a fresco artist on discharge Physical therapy outpatient follow-up for placement of fresco artist to get this temporary for prosthesis Operative surgery office in 3 weeks for staple removal Left great toe osteomyelitis to be addressed following healing of the right BKA stump.
[2018-11-23] MEDS: INSULIN GLARGINE,HUM.REC.ANLOG 1,000 UNIT/10 ML VIAL SUBCUT SCH (21:57)
[2018-11-24] MEDS: CLINDAMYCIN 900 MG/D5W RTU 900 MG/50 ML RTUPB IV SCH ×3 (02:27→18:23)
[2018-11-24] MEDS: CEFAZOLIN 1 GM/D5W RTU 1 GM/50 ML RTUPB IV SCH ×3 (06:03→22:17)
[2018-11-24] MEDS: KETOROLAC TROMETHAMINE INJ/PF 30 MG/1 ML SDV IV SCH ×3 (06:03→22:18)
[2018-11-24 06:50] LABS: HEMOGLOBIN 12.9 g/dL (13.5-17.0); MEAN CORPUSCULAR HEMOGLOBIN 29.7 pg (27.0-33.4); MEAN CORPUSCULAR HGB CONC 33.8 g/dL (32.0-36.0); MEAN CORPUSCULAR VOLUME 88 fl (80-97); PLATELET COUNT 286 10^3/uL (150-450); RED BLOOD COUNT 4.33 10^6/uL (4.35-5.55); RED CELL DISTRIBUTION WIDTH 12.9 % (11.5-14.0)
[2018-11-24 07:22] LABS: ANION GAP 8 (5-19); BLOOD UREA NITROGEN 8 mg/dL (7-20); CALCIUM 8.3 mg/dL (8.4-10.2); CARBON DIOXIDE 32 mmol/L (22-30); CHLORIDE 98 mmol/L (98-107); GLUCOSE 206 mg/dL (75-110); POTASSIUM 3.9 mmol/L (3.6-5.0)
[2018-11-24] MEDS: METFORMIN HCL 500 MG TABLET PO SCH ×2 (07:58→18:23)
[2018-11-24] MEDS: INSULIN LISPRO 100 UNIT/ML 3 ML VIAL SUBCUT SCH ×4 (07:58→22:20)
[2018-11-24] MEDS: DOCUSATE SODIUM 100 MG CAPSULE PO SCH (09:46)
[2018-11-24] MEDS: POLYETHYLENE GLYCOL 3350 POWDER 17 GM/1 PACKET PO SCH (09:47)
[2018-11-24] MEDS: AMLODIPINE BESYLATE 5 MG TABLET PO SCH (09:51)
[2018-11-24] MEDS: GABAPENTIN 300 MG CAPSULE PO SCH ×3 (09:51→18:23)
[2018-11-24] MEDS: FAMOTIDINE 20 MG TABLET PO SCH ×2 (09:51→22:19)
[2018-11-24] MEDS: ENOXAPARIN SODIUM INJ 40 MG/0.4 ML DISP.SYRIN SUBCUT SCH (09:52)
--- NOTE | 2018-11-24 10:31 | PDOC PROGRESS REPORT ---
Subjective Progress Note for:: 11/24/18 Subjective:: Patient is comfortable, no complaints Reason For Visit: OSTEOMYELITIS, DIABETES, HYPERTENSION Physical Exam Vital Signs: Temp Pulse Resp BP Pulse Ox 98.9 F 52 L 16 134/70 H 96 11/24/18 08:00 11/24/18 08:00 11/24/18 08:00 11/24/18 08:00 11/24/18 08:00 Pulse Oximeter Continuous Start: 11/20/18 17:03 Freq: RTQ4 Status: Complete Protocol: Document 11/21/18 11:40 LDA (Rec: 11/21/18 11:40 LDA [email or web address]) Pulse Oximetry Assessment Equipment Usage Equipment Standby Continuous SpO2 Machine # [id number] Intake & Output 11/23/18 11/24/18 11/25/18 06:59 06:59 06:59 Intake Total 1390 1050 Output Total 905 2535 Balance 485 -1485 Weight 88.4 kg 87.4 kg General appearance: PRESENT: no acute distress Extremities exam: PRESENT: other - Right lower extremity = BKA stump clean, dry, and intact, staple line intact, DENAE drain with minimal serous fluid, no cellulitis, moderate posterior tenderness Left lower extremity = great toe without erythema or edema, presence of a large fungating just crusting area at the level of the first metatarsophalangeal joint Results Laboratory Results: 11/24/18 06:33 11/24/18 06:33 11/24/18 11/24/18 06:33 06:33 WBC 7.0 RBC 4.33 L Hgb 12.9 L Hct 38.0 MCV 88 MCH 29.7 MCHC 33.8 RDW 12.9 Plt Count 286 Sodium 137.6 Potassium 3.9 Chloride 98 Carbon Dioxide 32 H Anion Gap 8 BUN 8 Creatinine 0.41 L Est GFR ( Amer) > 60 Glucose 206 H Calcium 8.3 L Impressions: Foot X-Ray 11/19/18 15:25 IMPRESSION: 1. Subcutaneous gas along the 1st digit with bony destruction of the 1st distal phalanx compatible with osteomyelitis. 2. Likely laceration along the lateral forefoot. Chest X-Ray 11/19/18 18:05 IMPRESSION: No evidence of acute cardiopulmonary process. Lower Extremity MRI 11/21/18 00:00 IMPRESSION: 1. Osteomyelitis is restricted to the tip of the great toe. 2. A soft tissue wound along the 5th metatarsal distally. No associated osteomyelitis here. 3. No drainable fluid collections. Other findings as above. Assessment & Plan - Diagnosis (1) Gangrene of right foot Is this a current diagnosis for this admission?: Yes - Plan Summary Plan Summary: Assessment: Postop day #4 following right BKA Drain output scant BKA stump well-healing Left great toe distal osteomyelitis on MRI with no erythema or edema Plan: Remove drain today Physical therapy to apply right BKA stump telecommunications analyst with posterior splint before discharge today Patient will be discharged to home today by the hospitalist service Follow-up with surgery office in 3 weeks Follow-up with physical therapy as an outpatient according to the protocol for telecommunications analyst application, posterior splint, and the prosthesis fitting Patient to be discharged home on 10-day worth of oral antibiotics (Augmentin) Patient recommended to monitor the left great toe because of the osteomyelitis: He will need an elective left great toe amputation in the next 3 to 4 months
--- NOTE | 2018-11-24 17:16 | PDOC PROGRESS REPORT ---
Subjective Progress Note for:: 11/24/18 Subjective:: 11/22/2018 being seen for medical management concerning his diabetes, hypertension and other medical problems. Patient came into the ER with gangrene of the great toe and surgeries was consulted, with resulting BKA of the right leg 11/23/2018 patient is doing well from his amputation in secondary to osteomyelitis as result of diabetes uncontrolled. Surgery directing his care. 11/24/2018 patient was supposed to go home today but at 4:00 this afternoon his was still asking that he stay 1 more day that she can get things arranged at his house. Patient has no insurance and is self-pay. She is try to get a bedside commode she is try to get walkers at the house. Patient had a below the knee amputation just last week so he will be very new to crutches and unsteady Patient will need to go home on Augmentin 875 1 tablet twice daily for 10 days, patient will need his esme removed in [address] Cruz. She will need dressing change daily and the who is a home nurse has been instructed how to do this patient will also need to wear the splint underneath his right knee so that he does not develop contractures with his stump. Patient will also need to go to physical therapy every other day. Patient has been briefed on all this, the only arrangements we need to make is the prescription for Augmentin Reason For Visit: OSTEOMYELITIS, DIABETES, HYPERTENSION Physical Exam Vital Signs: Temp Pulse Resp BP Pulse Ox 98.9 F 58 L 16 137/70 H 99 11/24/18 12:12 11/24/18 12:12 11/24/18 12:12 11/24/18 12:12 11/24/18 12:12 Pulse Oximeter Continuous Start: 11/20/18 17:03 Freq: RTQ4 Status: Complete Protocol: Document 11/21/18 11:40 LDA (Rec: 11/21/18 11:40 LDA [email or web address]) Pulse Oximetry Assessment Equipment Usage Equipment Standby Continuous SpO2 Machine # [id number] Intake & Output 11/23/18 11/24/18 11/25/18 06:59 06:59 06:59 Intake Total 1390 1050 Output Total 068 2585 Balance 485 -1485 Weight 88.4 kg 87.4 kg General appearance: PRESENT: no acute distress Respiratory exam: PRESENT: clear to auscultation cherie. ABSENT: rales, rhonchi, wheezes Cardiovascular exam: PRESENT: RRR. ABSENT: diastolic murmur, rubs, systolic murmur Extremities exam: PRESENT: other - Surgical site is clean and dry with no sign of redness or infection, esme are intact Neurological exam: PRESENT: alert, awake, oriented to person, oriented to place, oriented to time, oriented to situation, CN II-XII grossly intact. ABSENT: motor sensory deficit Psychiatric exam: PRESENT: agitated - She is a little agitated with not being able to get out today and also with so many people directing his care,ie his Results Laboratory Results: 11/24/18 06:33 11/24/18 06:33 11/24/18 11/24/18 06:33 06:33 WBC 7.0 RBC 4.33 L Hgb 12.9 L Hct 38.0 MCV 88 MCH 29.7 MCHC 33.8 RDW 12.9 Plt Count 286 Sodium 137.6 Potassium 3.9 Chloride 98 Carbon Dioxide 32 H Anion Gap 8 BUN 8 Creatinine 0.41 L Est GFR ( Amer) > 60 Glucose 206 H Calcium 8.3 L 11/19/18 16:56 Blood Blood Culture - Final NO GROWTH IN 5 DAYS 11/19/18 16:10 Blood Blood Culture - Final NO GROWTH IN 5 DAYS Impressions: Foot X-Ray 11/19/18 15:25 IMPRESSION: 1. Subcutaneous gas along the 1st digit with bony destruction of the 1st distal phalanx compatible with osteomyelitis. 2. Likely laceration along the lateral forefoot. Chest X-Ray 11/19/18 18:05 IMPRESSION: No evidence of acute cardiopulmonary process. Lower Extremity MRI 11/21/18 00:00 IMPRESSION: 1. Osteomyelitis is restricted to the tip of the great toe. 2. A soft tissue wound along the 5th metatarsal distally. No associated osteomyelitis here. 3. No drainable fluid collections. Other findings as above. Assessment and Plan - Diagnosis (1) Hyperlipidemia Is this a current diagnosis for this admission?: Yes Plan: We will check a fasting lipid panel in the morning. History of medications in the past. 11/22/2018 total triglycerides and total cholesterol were normal 11/23/2018 no medication for lipids 11/24/2018 above (2) Hypertension Is this a current diagnosis for this admission?: Yes Plan: Blood pressures elevated in the ER, patient states that he may have had hypertension in the past 11/22/2018 patient's blood pressures are running around 150/70, currently using Apresoline on a as needed basis. Add Norvasc tomorrow start off at 5 mg daily 11/23/2018 blood pressure running about the same adding Norvasc 5 mg daily 11/24/2018 Norvasc 5 mg daily blood pressure today is better 137/70 and 141/70 (3) Cellulitis of foot Is this a current diagnosis for this admission?: Yes Plan: Will be started on vancomycin IV in the ED and will be seen by general surgery further recommendations as well 11/22/2018 he has had a BKA currently on Ancef 1 g IV every 8 hours and clindamycin 900 mg IV every 8 hours 9 8:19 AM antibiotics as above blood culture shows no growth in 72 hours. Still awaiting wound cultures 11/24/2018 cellulitis of the right foot has been taking care of with the below the knee amputation patient does have osteomyelitis of the left great toe but this will be addressed after his right leg heals in 2 to 3 months. General surgery i s aware of that and recommends this (4) Gas gangrene Is this a current diagnosis for this admission?: No (5) Hyperglycemia Is this a current diagnosis for this admission?: Yes Plan: She was started on metformin 500 mg twice daily and has been on a sliding scale of insulin as well. When patient came in his serum glucose was 317 it is now down into the low 200s. When he came in his hemoglobin A1c was 10.7 We will increase patient's metformin to thousand milligrams twice daily 11/23/2018 working on lowering patient's blood sugars. Fingersticks are running in the high 100s. It is been many years since patient has been on any medicines for diabetes 11/24/2018 she is currently on metformin to thousand milligrams twice daily. Try this for a month or 2 and then if he fails to go with insulin. He has seen diabetic teaching and he has also been instructed on how to give insulin inj ections subcu Serum glucose this morning was 206, fingersticks average about 150 (6) Osteomyelitis of great toe Is this a current diagnosis for this admission?: Yes Plan: Osteomyelitis as diagnosed by x-ray, patient to be put on antibiotics and seen by general surgery 11/22/2018 patient has had a BKA on 11/20/2018. Patient had a MRI of the left lower extremity which shows osteomyelitis restricted to the tip of the great toe. No osteomyelitis seen of the fifth metatarsal 11/23/2018 see the note above. Patient currently on antibiotic postop day #3 11/24/2018 patient does have osteomyelitis of the left great toe. This will need to be addressed in 2 to 3 months after his right below the knee amputation has healed. The osteomyelitis that he had in his right foot has been amputated - Time Time Spent with patient: 35 or more minutes
[2018-11-24] MEDS: INSULIN GLARGINE,HUM.REC.ANLOG 1,000 UNIT/10 ML VIAL SUBCUT SCH (22:30)
[2018-11-25] MEDS: CLINDAMYCIN 900 MG/D5W RTU 900 MG/50 ML RTUPB IV SCH ×3 (02:48→17:19)
[2018-11-25] MEDS: CEFAZOLIN 1 GM/D5W RTU 1 GM/50 ML RTUPB IV SCH ×2 (06:38→13:24)
[2018-11-25] MEDS: KETOROLAC TROMETHAMINE INJ/PF 30 MG/1 ML SDV IV SCH ×2 (06:38→13:24)
[2018-11-25] MEDS: GABAPENTIN 300 MG CAPSULE PO SCH ×3 (09:12→17:19)
[2018-11-25] MEDS: METFORMIN HCL 500 MG TABLET PO SCH ×2 (09:12→17:19)
[2018-11-25] MEDS: FAMOTIDINE 20 MG TABLET PO SCH (09:12)
[2018-11-25] MEDS: INSULIN LISPRO 100 UNIT/ML 3 ML VIAL SUBCUT SCH ×3 (09:13→17:13)
[2018-11-25] MEDS: AMLODIPINE BESYLATE 5 MG TABLET PO SCH (09:14)
[2018-11-25] MEDS: DOCUSATE SODIUM 100 MG CAPSULE PO SCH (09:15)
[2018-11-25] MEDS: POLYETHYLENE GLYCOL 3350 POWDER 17 GM/1 PACKET PO SCH (09:15)
[2018-11-25] MEDS: ENOXAPARIN SODIUM INJ 40 MG/0.4 ML DISP.SYRIN SUBCUT SCH (09:18)
[2018-11-25 16:26] VITALS: BP 134/70
[2018-11-25] MEDS ORDERED: SULFAMETHOXAZOLE/TRIMETHOPRIM 800-160 MG TABLET PO ONE (20:00)
--- NOTE | 2018-11-27 16:49 | PDOC H&P ---
History of Present Illness Admission Date/PCP: 11/19/18 17:40 History of Present Illness: JOHANA RUIZ JR is a 58 year old male with uncontrolled diabetes. The patient reports that approximately 1 week ago he was out of town visiting friends. He was walking around town and noticed bleeding from his toe. The patient reports that he did not seek care at that time and treated it with creams and dressings. The toe began to worsen, and the patient returned home. Upon returning home he showed the foot to his family, who immediately brought him to the hospital. The patient reports that he has diabetes, but does not check his sugars or take any medications. The patient does have some amount of neuropathy. The patient began to notice a foul odor and black discoloration of his right great toe. He also has erythema that has extended proximally up the foot and onto the lower le g. The patient reports foul-smelling drainage that is worsening. He denies chest pain, shortness of breath, nausea, vomiting, headache, dizziness, orthostasis, abdominal pain, fatigue. Past Medical History Cardiac Medical History: Reports: Hyperlipidema, Hypertension Endocrine Medical History: Reports: Diabetes Mellitus Type 2 Psychiatric Medical History: Reports: None, Other - Patient states he only drin ks a beer or 2 every few days Past Surgical History Past Surgical History: Reports: Tonsillectomy Social History Lives with: Family Smoking Status: Current Every Day Smoker Cigarettes Packs Per Day: 1 Number of Years Smokin Last Time Smoked: 11/19/2018 Frequency of Alcohol Use: Heavy Hx Recreational Drug Use: No Drugs: Marijuana - Advance Directive Resuscitation Status: Full Code Family History Family History: Reviewed & Not Pertinent Parental Family History Reviewed: Yes Children Family History Reviewed: Yes Sibling(s) Family History Reviewed.: Yes Medication/Allergy Home Medications: Amlodipine Besylate [Norvasc 5 mg Tablet] 5 mg PO DAILY 30 Days #30 tablet 11/25/18 Metformin HCl [Glucophage 500 mg Tablet] 1,000 mg PO BIDACBS 30 Days #60 tablet 11/25/18 Sulfamethoxazole/Trimethoprim [Bactrim 400-80 mg Tablet] 2 each PO BID 14 Days #28 tablet 11/25/18 Allergies/Adverse Reactions: Penicillins Allergy (Verified 11/19/18 14:47) Physical Exam Vital Signs: Temp Pulse Resp BP Pulse Ox 97.7 F 54 L 16 134/70 H 100 11/25/18 16:18 11/25/18 16:18 11/25/18 16:18 11/25/18 16:18 11/25/18 16:18 Pulse Oximeter Continuous Start: 11/20/18 17:03 Freq: RTQ4 Status: Complete Protocol: Document 11/21/18 11:40 LDA (Rec: 11/21/18 11:40 LDA [email or web address]) Pulse Oximetry Assessment Equipment Usage Equipment Standby Continuous SpO2 Machine # [id number] Intake & Output 11/26/18 11/27/18 11/28/18 06:59 06:59 06:59 Intake Total 920 Balance 920 General appearance: PRESENT: no acute distress, well-developed, well-nourished Respiratory exam: PRESENT: clear to auscultation cherie. ABSENT: rales, rhonchi, wheezes Cardiovascular exam: PRESENT: RRR. ABSENT: diastolic murmur, rubs, systolic murmur Pulses: PRESENT: normal dorsalis pedis pul Extremities exam: PRESENT: full ROM, other - Status post right BKA.. ABSENT: calf tenderness, clubbing, pedal edema Neurological exam: PRESENT: alert, awake, oriented to person, oriented to place, oriented to time, oriented to situation, CN II-XII grossly intact. ABSENT: motor sensory deficit Results Laboratory Results: 11/24/18 06:33 11/24/18 06:33 Impressions: Foot X-Ray 11/19/18 15:25 IMPRESSION: 1. Subcutaneous gas along the 1st digit with bony destruction of the 1st distal phalanx compatible with osteomyelitis. 2. Likely laceration along the lateral forefoot. Chest X-Ray 11/19/18 18:05 IMPRESSION: No evidence of acute cardiopulmonary process. Lower Extremity MRI 11/21/18 00:00 IMPRESSION: 1. Osteomyelitis is restricted to the tip of the great toe. 2. A soft tissue wound along the 5th metatarsal distally. No associated osteomyelitis here. 3. No drainable fluid collections. Other findings as above. Assessment and Plan - Diagnosis (1) Gangrene of right foot Is this a current diagnosis for this admission?: Yes (2) Diabetes Is this a current diagnosis for this admission?: Yes (3) Hyperlipidemia Is this a current diagnosis for this admission?: Yes (4) Hypertension Is this a current diagnosis for this admission?: Yes (5) Osteomyelitis of great toe Is this a current diagnosis for this admission?: Yes
--- NOTE | 2018-11-27 16:50 | PDOC DISCHARGE SUMMARY ---
General - Admit/Disc Date/PCP Admission Date/Primary Care Provider: 11/19/18 17:40 Discharge Date: 11/25/18 - Discharge Diagnosis (1) Gangrene of right foot Is this a current diagnosis for this admission?: Yes (2) Osteomyelitis of great toe Is this a current diagnosis for this admission?: Yes (3) Diabetes Is this a current diagnosis for this admission?: Yes (4) Hypertension Is this a current diagnosis for this admission?: Yes - Additional Information Resuscitation Status: Full Code Discharge Diet: Diabetic Discharge Activity: Activity As Tolerated, Balance Activity w/Rest, No Driving, No tub bath Prescriptions: Sulfamethoxazole/Trimethoprim [Bactrim 400-80 mg Tablet] 2 each PO BID 14 Days #28 tablet Metformin HCl [Glucophage 500 mg Tablet] 1,000 mg PO BIDACBS 30 Days #60 tablet Amlodipine Besylate [Norvasc 5 mg Tablet] 5 mg PO DAILY 30 Days #30 tablet Home Medications: Amlodipine Besylate [Norvasc 5 mg Tablet] 5 mg PO DAILY 30 Days #30 tablet 11/25/18 Metformin HCl [Glucophage 500 mg Tablet] 1,000 mg PO BIDACBS 30 Days #60 tablet 11/25/18 Sulfamethoxazole/Trimethoprim [Bactrim 400-80 mg Tablet] 2 each PO BID 14 Days #28 tablet 11/25/18 History of Present Illness History of Present Illness: JOHANA RUIZ JR is a 58 year old male Hospital Course Hospital Course: (1) Gangrene of right foot Was started on empiric Ancef and clindamycin IV. Surgery consulted. Underwent BKA on postop 11/19/2018. Day #5 right BKA. Drain output scant. BKA stump well-healing Patient refused inpatient rehab. Want to be discharged home. Defer to nursing and discharge planning note. Physical therapy was consulted. Physical therapy was to apply right BKA stump md allergy immunology with posterior splint as per surgery note however as per my conversation with physical therapy it had to be done as an outpatient physical therapy. Patient did not qualify for outpatient physical therapy as per discharge planning and was asked to stay in the hospital until it has been figured however patient was adamant about leaving and he stated that he will pay out of his pocket and he able to afford it. Physical therapy referral was arranged by discharge planning. 3-week follow-up was made with surgery clinic. Patient was asked to follow-up with physical therapy as outpatient for md allergy immunology application, posterior splint, and the prosthesis fitting Discharged on Bactrim p.o. twice daily. Note patient allergic to penicillin. (2) Osteomyelitis of great toe Osteomyelitis left third toe. CRP 217, ESR 80. X-ray and MRI suggestive of osteomyelitis. Foot X-Ray 11/19/18 15:25 IMPRESSION: 1. Subcutaneous gas along the 1st digit with bony destruction of the 1st distal phalanx compatible with osteomyelitis. 2. Likely laceration along the lateral forefoot. Lower Extremity MRI 11/21/18 00:00 IMPRESSION: 1. Osteomyelitis is restricted to the tip of the great toe. 2. A soft tissue wound along the 5th metatarsal distally. No associated osteomyelitis here. 3. No drainable fluid collections. Other findings as above. Foot X-Ray 11/19/18 15:25 IMPRESSION: 1. Subcutaneous gas along the 1st digit with bony destruction of the 1st distal phalanx compatible with osteomyelitis. 2. Likely laceration along the lateral forefoot. Was started on IV Ancef and clindamycin. Was discharged on Bactrim twice daily for 14 days. Surgical team recommendation was for the patient to to monitor the left great toe because of the osteomyelitis follow-up at the clinic for possible left great toe amputation in the next 3 to 4 months (3) Diabetes Uncontrolled. A1c 10.7% diabetes. Demise during hospitalization. Was started on diabetic protocol. Was discharged on metformin 2000 milligrams p.o. twice daily. Unfortunately could not be discharged on insulin regimen as patient does not qualify. Patient was advised to follow-up with PCP for evaluation of his diabetes and possible initiation of insulin. (4) Hypertension Controlled. Was started on Norvasc. Discharge on Norvasc and follow-up with PCP. Physical Exam Vital Signs: Temp Pulse Resp BP Pulse Ox 97.7 F 54 L 16 134/70 H 100 11/25/18 16:18 11/25/18 16:18 11/25/18 16:18 11/25/18 16:18 11/25/18 16:18 Pulse Oximeter Continuous Start: 11/20/18 17:03 Freq: RTQ4 Status: Complete Protocol: Document 11/21/18 11:40 LDA (Rec: 11/21/18 11:40 LDA [email or web address]) Pulse Oximetry Assessment Equipment Usage Equipment Standby Continuous SpO2 Machine # [id number] Intake & Output 11/26/18 11/27/18 11/28/18 06:59 06:59 06:59 Intake Total 920 Balance 920 Results Laboratory Results: 11/24/18 06:33 11/24/18 06:33 Impressions: Foot X-Ray 11/19/18 15:25 IMPRESSION: 1. Subcutaneous gas along the 1st digit with bony destruction of the 1st distal phalanx compatible with osteomyelitis. 2. Likely laceration along the lateral forefoot. Chest X-Ray 11/19/18 18:05 IMPRESSION: No evidence of acute cardiopulmonary process. Lower Extremity MRI 11/21/18 00:00 IMPRESSION: 1. Osteomyelitis is restricted to the tip of the great toe. 2. A soft tissue wound along the 5th metatarsal distally. No associated osteomyelitis here. 3. No drainable fluid collections. Other findings as above. Qualifiers - * PATIENT BEING DISCHARGED WITH ANY OF THE FOLLOWING DIAGNOSIS: No Acute Heart Failure - Is this a Heart Failure Patient?: No
== END 2018-11-25 20:54 | disposition home or self-care (01) | DRG 239 ==
LOC: ER 14:44 → EH 17:40 → 4S 20:53
PROVIDERS: ADMIT Hospitalist; ATTEND Hospitalist
PROC: 0Y6H0Z1 Detachment at Right Lower Leg, High, Open Approach (ICD-10-PCS; principal; 2018-11-19)
DX: E11.52 Type 2 diabetes mellitus with diabetic peripheral angiopathy with gangrene (principal); A48.0 Gas gangrene; L03.119 Cellulitis of unspecified part of limb; M86.171 Other acute osteomyelitis, right ankle and foot; I10 Essential (primary) hypertension; E11.69 Type 2 diabetes mellitus with other specified complication; E78.5 Hyperlipidemia, unspecified; E11.40 Type 2 diabetes mellitus with diabetic neuropathy, unspecified; F17.210 Nicotine dependence, cigarettes, uncomplicated; K59.00 Constipation, unspecified; E11.65 Type 2 diabetes mellitus with hyperglycemia; E78.00 Pure hypercholesterolemia, unspecified; Z60.2 Problems related to living alone; Z79.899 Other long term (current) drug therapy; Z88.0 Allergy status to penicillin
CPT/HCPCS: 01482; 36415; 71046; 80048; 80053; 80061; 81001; 82272; 82962; 83036; 83605; 85025; 85027; 85610; 85652; 86140; 87040; 88307; 88311; 93005; 93010; 94762; 94799; 96360; 99285; J0131; J0690; J1170; J1644; J1650; J1815; J1885; J2250; J2270; J2405; J2704; J3010; J3370; J3490; J7030

== ENCOUNTER 2019-04-10 08:51 | Emergency (ER) | payer OTHER ==
[2019-04-10 09:12] VITALS: BP 143/65
--- NOTE | 2019-04-10 09:19 | ER Document Report ---
HPI - HPI Time Seen by Provider: 04/10/19 09:07 Pain Level: Denies Notes: 59-year-old male patient presenting to the emergency department with request for medication refill. Patient requesting refill on his antihypertensives and diabetes medicines. Patient states he is currently in the process of getting approved to see a physician at [facility]. Denies any acute complaints today. Past Medical History - General Information source: Patient - Social History Smoking Status: Former Smoker Chew tobacco use (# tins/day): No Frequency of alcohol use: Rare Drug Abuse: None Family History: Reviewed & Not Pertinent Patient has suicidal ideation: No Patient has homicidal ideation: No - Past Medical History Cardiac Medical History: Reports: Hx Hypercholesterolemia, Hx Hypertension Endocrine Medical History: Reports: Hx Diabetes Mellitus Type 2 Past Surgical History: Reports: Hx Tonsillectomy Vertical Provider Document - CONSTITUTIONAL Notes: PHYSICAL EXAMINATION: GENERAL: Well-appearing, well-nourished and in no acute distress. HEAD: Atraumatic, normocephalic. EYES: Pupils equal round extraocular movements intact, conjunctiva are normal. ENT: Nares patent NECK: Normal range of motion LUNGS: No respiratory distress Musculoskeletal: Normal range of motion NEUROLOGICAL: Normal speech, normal gait. PSYCH: Normal mood, normal affect. SKIN: Warm, Dry, normal turgor, no rashes or lesions noted. - INFECTION CONTROL TRAVEL OUTSIDE OF THE [place] IN LAST 30 DAYS: No Course - Re-evaluation Re-evalutation: Medications refilled per request. Discharge - Discharge Clinical Impression: Encounter for medication refill Condition: Stable Disposition: HOME, SELF-CARE Additional Instructions: You were seen in the emergency department for medication refill. Your medications were refilled to include to additional refills. Please establish care with the critical access hospital. Prescriptions: Glipizide [Glucotrol 5 mg Tablet] 0.5 tab PO BID #30 tablet Metformin HCl 1,000 mg PO BID #60 tablet Amlodipine Besylate [Norvasc 5 mg Tablet] 5 mg PO DAILY #30 tablet Referrals: CLARA SALTER MD [Primary Care Provider] - Follow up as needed
== END 2019-04-10 09:15 | disposition home or self-care (01) ==
LOC: ER 08:51
DX: Z76.0 Encounter for issue of repeat prescription (principal); I10 Essential (primary) hypertension; E11.9 Type 2 diabetes mellitus without complications; Z79.899 Other long term (current) drug therapy; Z87.891 Personal history of nicotine dependence
CPT/HCPCS: 99281

== ENCOUNTER 2019-06-30 09:24 | Emergency (ER) | payer OTHER ==
[2019-06-30] MEDS ORDERED: KETOROLAC TROMETHAMINE 60 MG/2 ML SDV IM ONE (10:12)
--- NOTE | 2019-06-30 10:15 | ER Document Report ---
ED Extremity Problem, Lower - General Chief Complaint: Thigh Pain Stated Complaint: UPPER THIGH PAIN/GROIN PAIN Time Seen by Provider: 06/30/19 09:49 Primary Care Provider: ALIZE ESTEBAN,CORY [Primary Care Provider] - Follow up in 1 week Notes: Patient is a 59-year-old male with a history of a right BKA who presents emergency department with right thigh pain. Patient states that he has had his pain for the past about 3 weeks. He was seen by his surgeon and was told the area looked normal. He states that the pain radiates from the lower portion of his stump up to his groin area. He denies any fever, body aches, or chills. Patient states that the prosthetic has been rubbing on his stump. TRAVEL OUTSIDE OF THE [place] IN LAST 30 DAYS: No - Related Data Allergies/Adverse Reactions: Penicillins Allergy (Verified 04/10/19 08:58) Past Medical History - Social History Smoking Status: Former Smoker Chew tobacco use (# tins/day): No Frequency of alcohol use: Occasional Drug Abuse: None Family History: Reviewed & Not Pertinent Patient has suicidal ideation: No Patient has homicidal ideation: No - Past Medical History Cardiac Medical History: Reports: Hx Hypercholesterolemia, Hx Hypertension Endocrine Medical History: Reports: Hx Diabetes Mellitus Type 2 Past Surgical History: Reports: Hx Orthopedic Surgery - R BKA, Hx Tonsillectomy Review of Systems - Review of Systems Notes: REVIEW OF SYSTEMS: CONSTITUTIONAL : Denies recent illness. Denies recent unintentional weight loss. Denies fever, chills, or sweats. EENT: Denies eye, ear, throat, or mouth pain, discharge, or symptoms. Denies nasal or sinus congestion. CARDIOVASCULAR: Denies chest pain. RESPIRATORY: Denies shortness of breath, cough, congestion, difficulty breathing, or wheezing. GASTROINTESTINAL: Denies nausea, vomiting, and diarrhea. Denies abdominal pain. Denies constipation. GENITOURINARY: Denies difficulty urinating, burning, blood in urine, urgency or frequency. MUSCULOSKELETAL: Denies neck and back pain. See HPI. SKIN: See HPI. HEMATOLOGIC : Denies easy bruising or bleeding. LYMPHATIC: Denies swollen, painful, enlarged glands. NEUROLOGICAL: Denies no numbness or tingling denies weakness. Denies headache. Denies altered mental status. Denies alteration in speech. PSYCHIATRIC: Denies stress, anxiety, alteration in sleep patterns, or depression. All other systems reviewed and negative. Physical Exam - Vital signs Vitals: Temp Pulse Resp BP Pulse Ox 97.6 F 73 16 136/67 H 99 06/30/19 09:30 06/30/19 09:30 06/30/19 09:30 06/30/19 09:30 06/30/19 09:30 - Notes Notes: PHYSICAL EXAMINATION: GENERAL: Appears well, healthy, well-nourished, no acute distress. HEAD: Normocephalic, atraumatic. EYES: PERRL, conjunctiva normal, all extraocular movements intact, sclera nonicteric ENT: Moist mucous membranes. NECK: Supple, no noticeable swelling, redness, rash. Normal range of motion. LUNGS: Equal breath sounds bilaterally and clear to auscultation. No wheezes rales or rhonchi. CARDIOVASCULAR: S1-S2, regular rate, regular rhythm. Radial pulses 2+, normal. ABDOMEN: Normoactive bowel sounds. Soft, nontender, no guarding, no rebound tenderness, and no masses palpated. EXTREMITIES: Normal range of motion, no pitting or edema. No cyanosis. Right BKA. NEUROLOGICAL: Moves all extremities upon command. PSYCH: Normal mood, normal affect. SKIN: Warm, very dry. Small amount of erythema with scabs noted to anterior portion of right stump. Erythema noted primarily to posterior thigh. Normal skin turgor. Course - Re-evaluation Re-evalutation: 06/30/19 12:28 Patient's x-ray shows possible osteomyelitis, but based off the patient's physical presentation, I have a very low suspicion for osteomyelitis. Patient states that his pain is mainly on the anterior and posterior portion of his left hand thank you right thigh. Patient does have cellulitis to his right posterior leg. Will place him on Keflex to help with that. Patient's legs are also dry. Instructed him to use Cetaphil. He is in agreement with this plan. Follow-up precautions were given. Verbal discharge instructions were given to the patient. They verbalized understanding. They are stable for discharge. - Vital Signs Vital signs: Temp Pulse Resp BP Pulse Ox 98.4 F 62 16 127/66 H 98 06/30/19 12:16 06/30/19 12:16 06/30/19 12:16 06/30/19 12:16 06/30/19 12:16 - Laboratory Result Diagrams: 06/30/19 10:19 06/30/19 10:19 Laboratory results interpreted by me: 06/30/19 10:19 Sodium 134.8 L Creatinine 0.46 L Glucose 241 H Discharge - Discharge Clinical Impression: Right leg pain Cellulitis Qualifiers: Site of cellulitis: extremity Site of cellulitis of extremity: lower extremity Laterality: right Qualified Code(s): L03.115 - Cellulitis of right lower limb Condition: Stable Disposition: HOME, SELF-CARE Additional Instructions: The rash is likely due to infection of your skin. You need to take the antibiotics as prescribed. Do not stop even if the rash goes away until you have completed all the antibiotics. The area of redness was traced out here in the emergency department with a marking pen. You need to return to emergency department if the redness spreads outside of this area by more than 2 cm in any direction. You should also return if you develop fevers with temperature greater than 101, persistent vomiting, worsening pain, or have any other symptoms that are concerning to you. Apply Cetaphil lotion to your body. Prescriptions: Vit E Acet/Gly/Dimeth/Water [Cetaphil Moisturizing Lotion] 473 ml TP DAILY #1 lotion Cephalexin Monohydrate [Keflex 500 mg Capsule] 500 mg PO Q6H 7 Days #28 capsule Referrals: [facility] [Primary Care Provider] - Follow up in 1 week
[2019-06-30 10:36] LABS: ABSOLUTE EOSINOPHILS # (AUTO) 0.3 10^3/uL (0.0-0.6); ABSOLUTE MONOCYTES (AUTO) 0.4 10^3/uL (0.1-1.4); ABSOLUTE NEUT (AUTO) 4.3 10^3/uL (1.7-8.2); BASOPHILS % (AUTO) 0.6 % (0-2); EOSINOPHILS % (AUTO) 4.5 % (0-6); HEMATOCRIT 39.7 % (37.9-51.0); HEMOGLOBIN 13.8 g/dL (13.5-17.0); LYMPHOCYTES % (AUTO) 28.8 % (13-45); MEAN CORPUSCULAR HEMOGLOBIN 29.3 pg (27.0-33.4); MEAN CORPUSCULAR HGB CONC 34.9 g/dL (32.0-36.0); MEAN CORPUSCULAR VOLUME 84 fl (80-97); MONOCYTES % (AUTO) 5.3 % (3-13); PLATELET COUNT 258 10^3/uL (150-450); RED BLOOD COUNT 4.71 10^6/uL (4.35-5.55); RED CELL DISTRIBUTION WIDTH 13.8 % (11.5-14.0); SEGMENTED NEUTROPHILS % (AUTO) 60.8 % (42-78); TOTAL CELLS COUNTED % (AUTO) 100 %; WHITE BLOOD COUNT 7.1 10^3/uL (4.0-10.5)
[2019-06-30 10:46] LABS: ANION GAP 11 (5-19); BLOOD UREA NITROGEN 12 mg/dL (7-20); CALCIUM 9.4 mg/dL (8.4-10.2); CARBON DIOXIDE 25 mmol/L (22-30); CHLORIDE 99 mmol/L (98-107); GLUCOSE 241 mg/dL (75-110); POTASSIUM 4.3 mmol/L (3.6-5.0)
--- NOTE | 2019-06-30 11:16 | RADIOLOGY REPORT (SQ) ---
EXAM DESCRIPTION: KNEE RIGHT 4 VIEWS IMAGES COMPLETED DATE/TIME: 06/30/2019 11:00 am REASON FOR STUDY: right leg/stump pain COMPARISON: None. NUMBER OF VIEWS: Two views. TECHNIQUE: AP and oblique radiographic images acquired of the right knee. LIMITATIONS: None. FINDINGS: MINERALIZATION: Normal. BONES: Prior below the knee amputation. Mild periostitis along the distal tibia. Osteomyelitis nadeem ot be excluded. No acute fracture. JOINT: No effusion. SOFT TISSUES: No soft tissue swelling. No radio-opaque foreign body. OTHER: No other significant finding. IMPRESSION: Mild periostitis along the remaining tibial stump. Osteomyelitis cannot be excluded. S light irregularity of the distal aspect of the remaining fibula as well. TECHNICAL DOCUMENTATION: JOB ID: [id number] 2010 [employer]- All Rights Reserved Reading location - IP/workstation name: [email or web address]
--- NOTE | 2019-06-30 11:20 | RADIOLOGY REPORT (SQ) ---
EXAM DESCRIPTION: FEMUR RIGHT IMAGES COMPLETED DATE/TIME: 06/30/2019 11:00 am REASON FOR STUDY: right leg/stump pain COMPARISON: None. NUMBER OF VIEWS: Two views. TECHNIQUE: Two radiographic images acquired of the right femur to include hip and knee in at least o ne projection. LIMITATIONS: None. FINDINGS: MINERALIZATION: Normal. BONES: No acute fracture. No worrisome bone lesions. SOFT TISSUES: No obvious swelling or foreign body. OTHER: No other significant finding. IMPRESSION: NEGATIVE STUDY OF THE RIGHT FEMUR. NO RADIOGRAPHIC EVIDENCE OF ACUTE INJURY. TECHNICAL DOCUMENTATION: JOB ID: [id number] 2010 [employer]- All Rights Reserved Reading location - IP/workstation name: [email or web address]
[2019-06-30 12:17] VITALS: BP 127/66
== END 2019-06-30 12:30 | disposition home or self-care (01) ==
LOC: ER 09:24
DX: L03.115 Cellulitis of right lower limb (principal); M79.651 Pain in right thigh; E78.00 Pure hypercholesterolemia, unspecified; I10 Essential (primary) hypertension; E11.9 Type 2 diabetes mellitus without complications; Z89.511 Acquired absence of right leg below knee; Z88.0 Allergy status to penicillin
CPT/HCPCS: 99283; 96372; 36415; 85025; 85652; 86140; 80048; 73552; 73564; J1885